=== PATIENT | male | born 1995 | race Hispanic/Latino ===

== ENCOUNTER 2020-09-03 12:52 | Emergency (ER) | payer SELFPAY ==
[2020-09-03] VITALS (18 sets, daily range): BP systolic 147–160; BP diastolic 91–104; PULSE 51–56; RESP 14; TEMP 36.6; O2SAT 96–100
--- NOTE | ~2020-09-03 | XR_ITS ---
EXAMINATION: XR chest 1V portable DATE: 09/03/2020 16:57 INDICATION: Hypertension. Dizziness. Lightheadedness. TECHNIQUE: frontal view of the chest was obtained. COMPARISON: None FINDINGS: The lungs are clear with no focal airspace opacities, pulmonary edema, pleural effusion or pneumothor ax. The cardiomediastinal silhouette is normal. Visualized bones and soft tissues are unremarkable. IMPRESSION: 1. No acute cardiopulmonary disease. Reviewed, dictated and finalized at location A. L FURNITURE REPAIRER
[2020-09-03 15:58] LABS: Basophils Absolute Auto 0.1 K/mm3 (0.0-0.1); Basophils Percent Auto 0.6 % (0.2-1.2); Eosinophils Absolute Auto 0.1 K/mm3 (0-0.3); Eosinophils Percent Auto 0.9 % (0-4.4); Hematocrit 48.2 % (42.0-52.0); Hemoglobin 17.2 g/dL (14.0-18.0); Immature Granulocyte Absolute 0.02 K/mm3 (0.00-0.031); Immature Granulocyte Percent A 0.3 % (0-0.5); Lymphocytes Absolute Auto 1.98 K/mm3 (0.9-3.2); Lymphocytes Percent Auto 25.1 % (18.3-44.2); Mean Corpuscular HGB Conc 35.7 g/dl (32-36); Mean Corpuscular Hemoglobin 30.2 pg (26-34); Mean Corpuscular Volume 84.6 fl (80-100); Mean Platelet Volume 8.7 fl (7.4-10.4); Monocytes Absolute Auto 0.7 K/mm3 (0.1-0.6); Monocytes Percent Auto 8.5 % (2.6-8.5); Neutrophils Absolute Auto 5.1 K/mm3 (1.3-6.7); Neutrophils Percent Auto 64.6 % (45.5-73.1); Platelet Count Result 266 k/mm3 (150-375); Red Cell Distribution Width 11.9 % (11.5-14.5); White Blood Count 7.9 K/mm3 (4.5-10.0)
[2020-09-03 16:13] LABS: Alanine Aminotransferase 85 U/L (4-50); Albumin Level 4.7 g/dL (3.5-5.1); Alkaline Phosphatase 124 U/L (38-126); Anion Gap 8 mmol/L (8-16); Aspartate Amino Transferase 65 U/L (17-59); Blood Urea Nitrogen 13 mg/dL (9-20); Calcium 9.7 mg/dL (8.4-10.2); Carbon Dioxide 28 mmol/L (22-30); Chloride 102 mmol/L (98-107); Estimated CRCL calculation 126 ml/min; Estimated Glomerular Filt Rate > 60; Glucose 91 mg/dL (75-110); Potassium 4.3 mmol/L (3.4-5.0); Sodium 138 mmol/L (137-145)
[2020-09-03 16:25] LABS: Troponin I < 0.012 ng/mL (0.000-0.034)
--- NOTE | 2020-09-03 16:44 | ED.GENADULT ---
HPI - General Adult General Chief complaint: Unspecified Stated complaint: htn Time Seen by Provider: 09/03/20 14:25 Source: patient Mode of arrival: ambulatory Limitations: no limitations History of Present Illness HPI narrative: Patient is a 24-year-old male who presents emergency department for evaluation of hypertension feeling dizzy lightheaded happened last night noticed this today he had taken his blood pressure at home and he had had elevated blood pressure readings patient on arrival to emergency department notes he is feeling better denying any pain or symptoms was concerned with family history of hypertension specifically in his dad patient at this time denies any fever chills URI symptoms or other complaints Related Data Home Medications Medication Instructions Recorded Confirmed No Home Medications 09/03/20 09/03/20 Allergies Allergy/AdvReac Type Severity Reaction Status Date / Time No Known Drug Allergies Allergy Unknown Verified 09/03/20 14:03 [facility] Social History Social History (Updated 09/03/20 @ 17:43 by Ethan Salas PA-C) Smoking status: Never smoker Exam Narrative: Exam Narrative: GENERAL: Well-appearing, well-nourished, and in no acute distress. HEAD: Normocephalic, atraumatic. EYES: PERRLA and EOMI. ENT: Nares clear, no rhinorrhea or epistaxis. Mucous membranes moist. CHEST: Clear to auscultation. No respiratory distress. No wheezes rales or rhonchi HEART: Regular rate and rhythm. No murmur heard. Normal peripheral pulses. ABDOMEN: Soft, nontender, nondistended EXTREMITIES: Normal range of motion. No edema. SKIN: Warm, dry, no rash. NEURO: No focal deficits. Alert and oriented x3. PSYCH: Normal mood and affect. Course Course Emergency Course: Patient in the room no distress has been evaluated pressures have remained elevated around 150/100 patient will be given primary care follow-up with blood pressure medication that will be initiated patient is agreeing with this plan will continue to monitor his blood pressures at home to keep a diary pending primary care follow-up Vital Signs Vital signs: Vital Signs Temperature 97.9 F 09/03/20 13:15 Pulse Rate 51 L 09/03/20 13:15 Respiratory Rate 14 09/03/20 13:15 Blood Pressure 160/104 H 09/03/20 13:15 Pulse Oximetry 99 09/03/20 13:15 Temperature 97.9 F 09/03/20 13:15 Pulse Rate 56 L 09/03/20 14:08 Respiratory Rate 14 09/03/20 13:15 Blood Pressure 159/100 H 09/03/20 17:01 Pulse Oximetry 100 09/03/20 17:02 Medical Decision Making MDM Narrative Medical decision making narrative: Patient presented with concerns for hypertension with dizziness that began over the last day patient with family history of hypertension patient's evaluation does not reveal any high risk changes nor did the imaging or EKG will be given follow-up with primary care patient is aware of recommendations and discussion with primary care Vital Signs Vital Signs: Vital Signs Temperature 97.9 F 09/03/20 13:15 Pulse Rate 51 L 09/03/20 13:15 Respiratory Rate 14 09/03/20 13:15 Blood Pressure 160/104 H 09/03/20 13:15 Pulse Oximetry 99 09/03/20 13:15 Temperature 97.9 F 09/03/20 13:15 Pulse Rate 56 L 09/03/20 14:08 Respiratory Rate 14 09/03/20 13:15 Blood Pressure 159/100 H 09/03/20 17:01 Pulse Oximetry 100 09/03/20 17:02 Lab Data Result diagrams: 09/03/20 15:43 09/03/20 15:43 Labs: Lab Results 09/03/20 09/03/20 Range/Units 15:43 15:43 WBC 7.9 (4.5-10.0) K/mm3 RBC 5.70 (4.6-6.20) M/mm3 Hgb 17.2 (14.0-18.0) g/dL Hct 48.2 (42.0-52.0) % MCV 84.6 (80-100) fl MCH 30.2 (26-34) pg MCHC 35.7 (32-36) g/dl RDW 11.9 (11.5-14.5) % Plt Count 266 (150-375) k/mm3 MPV 8.7 (7.4-10.4) fl Immature Gran % (Auto) 0.3 (0-0.5) % Neut % (Auto) 64.6 (45.5-73.1) % Lymph % (Auto) 25.1 (18.3-44.2) % [place] % (Auto) 8.5 (2.6-8.5) %
--- NOTE | 2020-09-03 16:45 | ECG_ITS ---
Measurements Intervals [place] Rate: 51 P: 22 [place]: 154 QRS: 26 QRSD: 93 T: 31 QT: 387 QTc: 358 Interpretive Statements SINUS BRADYCARDIA BORDERLINE ECG Electronically Signed On 09-03-2020 17:26:49 OPERATION SHIFT SUPERVISOR by Sarabjit Giles D.O.
== END 2020-09-03 18:17 | disposition home or self-care (01) ==
PROVIDERS: Emergency Medicine Emergency Medical Services; Emergency Provider Emergency Medicine; Referring Provider Family Medicine
DX: I10 Essential (primary) hypertension (principal); R00.1 Bradycardia, unspecified
CPT/HCPCS: 36415; 71045; 80053; 84484; 85025; 93005; 99284

== ENCOUNTER 2025-08-06 19:15 | Inpatient (IN) | payer SELFPAY ==
[2025-08-06] VITALS (17 sets, daily range): BP systolic 141–205; BP diastolic 89–128; PULSE 54–99; RESP 15–21; TEMP 36.5; O2SAT 98–100; BMI 33.8
--- NOTE | ~2025-08-06 | CT_ITS ---
EXAMINATION: CTA chest abdomen pelvis DATE: 08/06/2025 20:21 INDICATION: Chest pain. TECHNIQUE: Computed tomographic angiography (CTA) of the chest, abdomen, and pelvis was performed with 100 mL Omnipaque-350 intravenous contrast. Automated exposure control and iterative reconstruction technique were employed. The dose- length product was 1270.54 mGy-cm. Maximum intensity projection 3D- reconstructions of the aorta and other arteries were constructed by the technologist on a separate workstation. COMPARISON: CT abdomen 10/13/2013 FINDINGS: CHEST CTA: The lungs demonstrate mild atelectasis. Again seen is air trapping in basilar left lower lobe. No pleural effusion. Cardiomegaly is noted. No pericardial effusion. There is no pulmonary embolus. The aorta is normal. There is mild chronic anterior wedging of multiple vertebral bodies. There is mild thoracic spondylosis. ABDOMEN AND PELVIS CTA: The liver, gallbladder, spleen, pancreas, adrenal glands, and right kidney are normal. There is severe atrophy of left kidney. There are no dilated loops of bowel. There are changes of appendectomy. There is no significant stenosis of celiac axis, superior mesenteric artery, the renal arteries, or inferior mesenteric artery. There are no pathologically enlarged lymph nodes. There is no free intraperitoneal fluid. There is mild lumbar spondylosis. IMPRESSION: 1. Chronic air trapping in basilar left lung lower lobe. 2. Cardiomegaly. 3. Severe atrophy of left kidney. Reviewed, dictated and finalized at location E. ICAL CLERK
--- NOTE | ~2025-08-06 | XR_ITS ---
Examination: XR chest 1V portable Clinical History: CHEST PAIN Comparison: None Technique: Portable AP Findings: Heart size prominent. Lungs clear. No acute bony abnormality. IMPRESSION: 1. Heart size enlarged. 2. Lungs clear. Reviewed, dictated and finalized at location R. R&D LAB TECHNICIAN
--- NOTE | ~2025-08-06 | MR_ITS ---
EXAM/PROCEDURE: MR brain/brain stem wo/w con HISTORY: slurred speech COMPARISON: None available. TECHNIQUE: Pre and postcontrast enhanced multiplanar brain MRI performed. FINDINGS: No mass, mass effect or hemorrhage. No abnormal enhancing foci postcontrast series. No restricted diffusion or acute ischemia. Mild bifrontal T2 weighted hyperintense white matter foci are present as can be seen on images 16 through 19 of series 5. Milder changes also appear to be present in the parietal and occipital lobes. The largest of these lesions measures approximately 5 mm and is in the right frontal region, image 16 series 5. The brainstem and cerebellum appear normal. Vascular flow voids appear patent. Hippocampal regions are symmetric. Periorbital paranasal calvarial structures appear normal. IMPRESSION: Scattered small subcentimeter T2 weighted hyperintense white matter foci potentially representing demyelinating process. No associated restricted diffusion or abnormal enhancement. Reviewed, dictated and finalized at location A. LOGIST IMPRESSION: Scattered small subcentimeter T2 weighted hyperintense white matter foci potent ially representing demyelinating process. No associated restricted diffusion or abnormal enhancement.
--- NOTE | ~2025-08-06 | CT_ITS ---
CT HEAD NON-CONTRAST Clinical History: CHASE, Hypertensive crisis Comparison: None Technique: Unenhanced axial images skull base to vertex Coronal, sagittal reformats CT images acquired with automatic exposure control for dose reduction DLP: 908 mGy-cm Findings: Sulci, ventricles: Unremarkable. No intracerebral hemorrhage. No evidence acute territorial infarct. No mass effect, midline shift. Bony calvarium intact. Visualized paranasal sinuses: Clear. Mastoid air cells: Clear. IMPRESSION: 1. No acute intracranial findings. Reviewed, dictated and finalized at location R. OR GALLERY OPERATOR
--- NOTE | 2025-08-06 19:16 | ECG_ITS ---
Test Date: 2025-08-06 19:30:18 Measurements Intervals [place] Rate: 61 P: 33 [place]: 140 QRS: 20 QRSD: 117 T: 144 QT: 408 QTc: 413 Interpretive Statements SINUS RHYTHM INTRAVENTRICULAR CONDUCTION DELAY LEFT VENTRICULAR HYPERTROPHY WITH ST-T CHANGE ST-T WAVE ABNORMALITY N INFERIOR LEADS- CONSIDER ISCHEMIA PEAKED T WAVES- CONSIDER HYPERKALEMIA BASELINE ARTIFACT- I, II, III, AVR ABNORMAL ECG No previous ECG available for comparison Electronically Signed On 08-07-2025 06:14:57 ADVERTISING SALES AGENT by Sarabjit Giles D.O.
--- NOTE | 2025-08-06 19:36 | ECG_ITS ---
Test Date: 2025-08-06 20:20:34 Measurements Intervals [place] Rate: 73 P: 40 [place]: 140 QRS: 14 QRSD: 118 T: 153 QT: 432 QTc: 479 Interpretive Statements SINUS RHYTHM WITH SINUS ARRHYTHMIA INTRAVENTRICULAR CONDUCTION DELAY LEFT VENTRICULAR HYPERTROPHY WITH ST-T CHANGE ST-T WAVE ABNORMALITY IN INF/LAT LEADS- CONSIDER ISCHEMIA PEAKED T WAVES- CONSIDER HYPERKALEMIA ABNORMAL ECG Compared to ECG 08/06/2025 19:30:18 HEART RATE HAS INCREASED Electronically Signed On 08-07-2025 06:16:21 SINGLE ENDING MACHINE OPERATOR by Sarabjit Giles D.O.
[2025-08-06] MEDS: ASPIRIN 81 MG CHEWABLE TABLET 324 MG PO (19:42)
--- NOTE | 2025-08-06 19:45 | ECG_ITS ---
Test Date: 2025-08-06 19:45:36 Measurements Intervals [place] Rate: 54 P: 23 [place]: 140 QRS: 19 QRSD: 118 T: 136 QT: 427 QTc: 406 Interpretive Statements SINUS BRADYCARDIA INTRAVENTRICULAR CONDUCTION DELAY LEFT VENTRICULAR HYPERTROPHY WITH ST-T CHANGE ST-T WAVE ABNORMALITY IN INFERIOR LEADS- CONSIDER ISCHEMIA PEAKED T WAVES- CONSIDER HYPERKALEMIA BASELINE ARTIFACT- I, III, AVR, AVL, AVF ABNORMAL ECG Compared to ECG 08/06/2025 19:30:18 HEART RATE HAS DECREASED Electronically Signed On 08-07-2025 09:06:14 ELECTRONIC DEVICE MONITOR by Sarabjit Giles D.O.
[2025-08-06 19:48] LABS: Hematocrit 47.4 % (42.0-52.0); Hemoglobin 17.0 g/dL (14.0-18.0); Immature Granulocyte Percent A 0.5 % (0-0.5); Lymphocytes Absolute Auto 1.36 K/mm3 (0.9-3.2); Mean Corpuscular HGB Conc 35.9 g/dl (32-36); Mean Corpuscular Hemoglobin 30.7 pg (26-34); Mean Corpuscular Volume 85.7 fl (80-100); Nucleated Red Blood Cells Absolute Auto 0.000 K/mm3 (0.0-0.012); Nucleated Red Blood Cells Perc 0.0 % (0.0-0.2); Platelet Count Result 274 k/mm3 (150-375); Red Blood Count 5.53 M/mm3 (4.6-6.20); White Blood Count 12.9 K/mm3 (4.5-10.0)
--- NOTE | 2025-08-06 19:48 | ED_ITS ---
HPI - Chest Pain General Chief Complaint: Chest Pain Stated Complaint: elevated bp, chest heaviness Time Seen by Provider: 08/06/25 19:17 History of Present Illness HPI narrative: 29-year-old male otherwise healthy presenting to the emergency department with chest pain and heaviness for last 3-4 days with a sudden-onset severe headache today several hours ago. He states his pain is radiating up to his jaw localized to his chest and he is having an intense headache. States his blood pressure is elevated. His a history of elevated blood pressure and previously seen in the ER for this but did not follow up with his primary care provider or take any blood pressure medications. Denies any nausea, vomiting. States he was not doing anything exertional strenuous when the headache started. Has not tried any symptom controlling medications. No fever, chills, shortness a breath, limb weakness. His family states that he had some slurring speech with his headache that has resolved quickly and not evident presently. Patient denies any numbness or tingling in his arms or legs or any facial asymmetry or droop. No word-finding difficulties but does appear weak and tired. Related Data Allergies Allergy/AdvReac Type Severity Reaction Status Date / Time No Known Drug Allergies Allergy Unknown Verified 08/06/25 23:25 Review of Systems 2 Review of Systems: as reviewed above in HPI All systems reviewed & are unremarkable except as noted in HPI and below PMFSH Family History Family History (Updated 08/06/25 @ 23:29 by Skylar Brasher RN) Grandparent Hypertension Mother Hypertension Social History Social History Smoking status: Never smoker Second hand tobacco smoke exposure: No Alcohol intake: current Drinks per week: 30 Substance use: current Substance use type: marijuana and crack/cocaine Other substance usage details: cocaine rarely, weed every day Lack of Transportation: No Lack of Food: Never True Current Housing: I Have Housing Concerned About Future Housing: No Difficulty Paying Gas/Electric Bills: No Difficulty Paying for Meds: No Currently Unemployed: No Education: High School Diploma/GED Difficulty w/ Childcare or Family Care: No Spiritual care concerns: No Exam 2 Narrative: GENERAL: ill-appearing, tired and weak in appearance, complaining of a headache and chest pain HEAD: [Normocephalic, atraumatic.] EYES: [PERRLA and EOMI.] ENT: Nares clear, no rhinorrhea or epistaxis. Mucous membranes moist. NECK: Supple. CHEST: [Clear to auscultation. No respiratory distress.] HEART: strong pulses, warm extremities, regular rate and rhythm ABDOMEN: [Soft, nondistended], [nontender], [No rigidity or guarding] EXTREMITIES: Normal range of motion. [No edema.] SKIN: Warm, dry, no rash. NEURO: [No focal deficits]. Alert and oriented [x3.] PSYCH: [Normal mood and affect.] Course Vital Signs Vital signs: Vital Signs Pulse Rate 65 08/06/25 19:21 Respiratory Rate 18 08/06/25 19:21 Blood Pressure 205/128 H 08/06/25 19:21 Pulse Oximetry 100 08/06/25 19:21 Oxygen Delivery Room Air 08/06/25 19:21 Temperature 36.5 C 08/06/25 21:53 Pulse Rate 78 08/06/25 23:47 Respiratory Rate 20 08/06/25 22:40 Blood Pressure 163/113 H 08/06/25 23:47 Pulse Oximetry 100 08/06/25 22:40 Oxygen Delivery Room Air 08/06/25 19:21 MDM MDM Narrative Medical decision making narrative: 29-year-old male otherwise healthy presenting to the emergency department with chest pain and heaviness for last 3-4 days with a sudden-onset severe headache today several hours ago. He states his pain is radiating up to his jaw localized to his chest and he is having an intense headache. States his blood pressure is elevated. His a history of elevated blood pressure and previously seen in the ER for this but did not follow up with his primary care provider or take any blood pressure medications. Denies any nausea, vomiting. States he was not doing anything exertional strenuous when the headache started. Has not tried any symptom controlling medications. No fever, chills, shortness a breath, limb weakness. His family states that he had some slurring speech with his headache that has resolved quickly and not evident presently. Patient denies any numbness or tingling in his arms or legs or any facial asymmetry or droop. No word-finding difficulties but does appear weak and tired. Patient is complaining of chest pain and having elevated blood pressures high at 205/128. History of uncontrolled hypertension. patient is ill-appearing and weak/ lethargic but has no focal neurological deficits. His headache was sudden onset and throbbing /intense. EKG obtained initially shows LVH with higher voltages as well as high T-waves. Appears to have been flex it up were J-point elevations in the anterior leads with some flattening/ depressions in the inferior leads. He has no cardiac risk factors after discussing with him and the family members he does not smoke does not any strong family history of cardiac disease, no congenital history to his knowledge and does not use any illicit substances such as cocaine or methamphetamines, sympathomimetics. Repeat EKG shortly thereafter largely unchanged, compared to prior EKG 3 years ago there are significant T-wave differences and LVH is now present. This could be hypertensive emergency. 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 Potential for renal artery stenosis or renal induced hypertension causing his presentation at a young age. His EKG is abnormal but he has no coronary risk factors will proceed with treating his blood pressure and obtaining other potential rule outs at this time. CT angiography of the chest was ordered and a CT of the head was ordered to rule out intracranial pathology given the severe headache could be subarachnoid or other brain bleed. patient was given Compazine, labetalol, fluids and laboratory studies EKG serially and chest x- ray, the labs were ordered. CT called for emergent imaging at this time. Spoke to Interventional Cardiology Dr. Reynoso and we went over the 3 EKGs we have together. He does have inferior lateral ST depression pattern but no overt ST segment elevations. He did recommend blood pressure control and heparinization at this time if no contraindications but we are still waiting on CT angiography of his chest and CT of the head. I did review the CT angiography and I do not appreciate any large dissection or aneurysm formation but CT head does raise suspicion and awaiting radiology formal read although no overt subarachnoid/subdural / intraventricular bleed evident. Blood pressure initially responded to labetalol down to 160 systolic and then immediately rebounded up to 201/127. chest pain now better with blood pressure control with goal 160 systolic. spoke to the radiologist Dr. Lo regarding patient's head CT specifically around the posterior lateral aspect on the right side and he confirms there is no intracranial hemorrhage in this is his transverse sinuses. Patient has had improvement in his symptoms no longer having any chest pain with his blood pressure controlled in the 140s to 160 systolic range on 3 of Cardene. his remaining laboratory studies show a creatinine 1.14, troponin 3.92, will trend his troponin EKGs. Symptoms improved at this time. CT angiography shows no dissection or aneurysm formation. Chest x-ray appears to have some cardiomegaly and the LVH on his EKG points towards longstanding hypertension has not been controlled causing his presentation. Confirmed with Cardiology for heparinization and patient will be admitted to the ICU for nicardipine drip heparinization and Cardiology and feed in worker consultation. Waiting hospitals discussion at this time. Spoke to the hospitalist Dr. Lawrence who accepted the patient to the ICU at this time. One of the nursing staff raised suspicion for potential drug use as well after discussion with the patient's family. Patient adamantly denied drug use explicitly about cocaine or meth when asked. UDS was ordered and positive for cocaine which does help explain some of his symptomatology in addition to findings on labs/imaging. Dispo unchanged, admitted to ICU with cardene gtt for HTN emergency, cards eval and further monitoring/symtom control. Differential Diagnosis Differential Diagnosis: hypertensive emergency, ACS, aortic dissection, subarachnoid hemorrhage, electrolyte imbalances, renal artery stenosis causing hypertension, drug-induced hypertensive emergency Lab Data MDM Lab Attestation statement: I personally reviewed the patient's lab results. 08/06/25 22:46 08/06/25 19:41 Labs: Lab Results 08/06/25 08/06/25 08/06/25 Range/Units 19:41 21:10 21:10 WBC 12.9 H (4.5-10.0) K/mm3 RBC 5.53 (4.6-6.20) M/mm3 Hgb 17.0 (14.0-18.0) g/dL Hct 47.4 (42.0-52.0) % MCV 85.7 (80-100) fl MCH 30.7 (26-34) pg MCHC 35.9 (32-36) g/dl RDW 12.0 (11.5-14.5) % Plt Count 274 (150-375) k/mm3 MPV 8.8 (7.4-10.4) fl Immature Gran % (Auto) 0.5 (0-0.5) % Neut % (Auto) 82.7 H (45.5-73.1) % Lymph % (Auto) 10.5 L (18.3-44.2) % [place] % (Auto) 5.7 (2.6-8.5) % Eos % (Auto) 0.2 (0-4.4) % Baso % (Auto) 0.4 (0.2-1.2) % Lymph # (Auto) 1.36 (0.9-3.2) K/mm3 [place] # (Auto) 0.7 H (0.1-0.6) K/mm3 Eos # (Auto) 0.0 (0-0.3) K/mm3 Baso # (Auto) 0.1 (0.0-0.1) K/mm3 Abs Immat Gran (auto) 0.06 H (0.00-0.031) K/mm3 Absolute Neuts (auto) 10.7 H (1.3-6.7) K/mm3 Absolute Nucleated RBC 0.000 (0.0-0.012) K/mm3 Nucleated RBC % 0.0 (0.0-0.2) % PT 13.3 (11.1-14.7) Seconds INR 1.0 APTT 27.0 (22.3-36.8) Seconds Sodium 137 (137-145) mmol/L Potassium 4.0 (3.4-5.0) mmol/L Chloride 99 (98-107) mmol/L Carbon Dioxide 30 (22-30) mmol/L Anion Gap 8 (4-12) mmol/L BUN 9 (9-20) mg/dL Creatinine 1.14 (0.7-1.3) mg/dL Estim Creat Clear Calc 93 ml/min Estimated GFR > 60 (59 - ) Glucose 114 H (65-110) mg/dL Calcium 9.9 (8.4-10.2) mg/dL Total Bilirubin 1.2 (0.2-1.3) mg/dL AST 128 H (17-59) U/L ALT 55 H (6-50) U/L Alkaline Phosphatase 114 (38-126) U/L Troponin I 3.920 H* (0.000-0.034) ng/mL Total Protein 8.6 H (6.3-8.2) g/dL Albumin 4.8 (3.5-5.1) g/dL Lipase 348 H (23-300) U/L Ur Butalbital Screen Cancelled U Butalbital Confirm Cancelled Urine Opiates Screen Cancelled Negative Ur Opiates Confirm Cancelled Ur Codeine Screen Cancelled Urine Codeine Confirm Cancelled Ur Morphine Screen Cancelled U 6-Acetylmorphine Conf Cancelled Ur Morphine Confirm Cancelled Urine Methadone Screen Negative (Negative) Ur Barbiturates Screen Cancelled Urine Barbiturates Ur Phencyclidine Scrn (Negative) Ur Amphetamine Screen (Negative) Ur Amphetamines Screen U Amphetam Cnfrm GC/MS U Amphetamines Confirm U Methamphetamines Scrn U Methamphetamin Confrm Ur Amobarbital Screen Ur Amobarbital Confirm U Pentobarbital Scrn U Pentobarbital Conf U Phenobarbital Scrn U Phenobarbital Confirm U Secobarbital Screen U Secobarbital Confirm U Benzodiazepines Scrn (Negative) Urine Cocaine Screen (Negative) U Cocaine Metab Screen U Cocaine Metab Confirm Ur Benzoylecognine Conf U Cannabinoids Screen Urine Cannabinoids Ur Carboxy THC Confirm Adltrnts U Creatinine Adlt U Specific [place] Adulterants Ur Nitrites 08/06/25 08/06/25 08/06/25 Range/Units 21:10 21:10 21:10 WBC (4.5-10.0) K/mm3 RBC (4.6-6.20) M/mm3 Hgb (14.0-18.0) g/dL Hct (42.0-52.0) % MCV (80-100) fl MCH (26-34) pg MCHC (32-36) g/dl RDW (11.5-14.5) % Plt Count (150-375) k/mm3 MPV (7.4-10.4) fl Immature Gran % (Auto) (0-0.5) % Neut % (Auto) (45.5-73.1) % Lymph % (Auto) (18.3-44.2) % [place] % (Auto) (2.6-8.5) % Eos % (Auto) (0-4.4) % Baso % (Auto) (0.2-1.2) % Lymph # (Auto) (0.9-3.2) K/mm3 [place] # (Auto) (0.1-0.6) K/mm3 Eos # (Auto) (0-0.3) K/mm3 Baso # (Auto) (0.0-0.1) K/mm3 Abs Immat Gran (auto) (0.00-0.031) K/mm3 Absolute Neuts (auto) (1.3-6.7) K/mm3 Absolute Nucleated RBC (0.0-0.012) K/mm3 Nucleated RBC % (0.0-0.2) % PT (11.1-14.7) Seconds INR APTT (22.3-36.8) Seconds Sodium (137-145) mmol/L Potassium (3.4-5.0) mmol/L Chloride (98-107) mmol/L Carbon Dioxide (22-30) mmol/L Anion Gap (4-12) mmol/L BUN (9-20) mg/dL Creatinine (0.7-1.3) mg/dL Estim Creat Clear Calc ml/min Estimated GFR (59 - ) Glucose (65-110) mg/dL Calcium (8.4-10.2) mg/dL Total Bilirubin (0.2-1.3) mg/dL AST (17-59) U/L ALT (6-50) U/L Alkaline Phosphatase (38-126) U/L Troponin I (0.000-0.034) ng/mL Total Protein (6.3-8.2) g/dL Albumin (3.5-5.1) g/dL Lipase (23-300) U/L Ur Butalbital Screen U Butalbital Confirm Urine Opiates Screen Ur Opiates Confirm Ur Codeine Screen Urine Codeine Confirm Ur Morphine Screen U 6-Acetylmorphine Conf Ur Morphine Confirm Urine Methadone Screen (Negative) Ur Barbiturates Screen Negative Urine Barbiturates Cancelled Ur Phencyclidine Scrn Negative (Negative) Ur Amphetamine Screen Negative (Negative) Ur Amphetamines Screen Cancelled Cancelled U Amphetam Cnfrm GC/MS Cancelled U Amphetamines Confirm Cancelled U Methamphetamines Scrn Cancelled U Methamphetamin Confrm Cancelled Ur Amobarbital Screen Cancelled Ur Amobarbital Confirm Cancelled U Pentobarbital Scrn Cancelled U Pentobarbital Conf Cancelled U Phenobarbital Scrn Cancelled U Phenobarbital Confirm Cancelled U Secobarbital Screen Cancelled U Secobarbital Confirm Cancelled U Benzodiazepines Scrn Negative (Negative) Urine Cocaine Screen Positive A (Negative) U Cocaine Metab Screen Cancelled U Cocaine Metab Confirm Cancelled Ur Benzoylecognine Conf Cancelled U Cannabinoids Screen Cancelled Positive A Urine Cannabinoids Cancelled Ur Carboxy THC Confirm Cancelled Adltrnts U Creatinine Cancelled Adlt U Specific [place] Cancelled Adulterants Ur Nitrites Cancelled Imaging Data Attestation: I personally reviewed and interpreted this imaging study as follows: My impression: No acute intracranial findings. No dissection or aneurysm. Critical Care Time Critical Care Time Critical Care Time: Yes Time Type: Intermittent Initial evaluation, discuss w/ involved parties, attempting to gather old records: 15 minutes Documenting medical record: 15 minutes Review of results (EKG's, labs, imaging): 15 minutes Serial repeat bedside evaluation: 15 minutes Discussing case with multiple memebers of the care team and consultants: 15 minutes Total Critical Care Time: 75 Discharge Plan Discharge Clinical Impression: Hypertensive emergency, Non-STEMI (non-ST elevated myocardial infarction), Cocaine use, Agenesis of left kidney, Chest pain, Headache Patient Disposition: Still a Patient Condition: Guarded Prognosis
[2025-08-06] MEDS: SODIUM CHLORIDE 0.9% IV 1,000 ML 999 ML IV CONT (19:58)
[2025-08-06] MEDS: PROCHLORPERAZINE EDISYLATE 10 MG/2 ML VIAL IV PUSH (19:58)
[2025-08-06 20:01] LABS: INR 1.0; Prothrombin Time 13.3 Seconds (11.1-14.7)
[2025-08-06 20:03] LABS: Partial Thromboplastin Time 27.0 Seconds (22.3-36.8)
[2025-08-06 20:05] LABS: Alanine Aminotransferase 55 U/L (6-50); Albumin Level 4.8 g/dL (3.5-5.1); Alkaline Phosphatase 114 U/L (38-126); Anion Gap 8 mmol/L (4-12); Aspartate Amino Transferase 128 U/L (17-59); Bilirubin,Total 1.2 mg/dL (0.2-1.3); Blood Urea Nitrogen 9 mg/dL (9-20); Calcium 9.9 mg/dL (8.4-10.2); Carbon Dioxide 30 mmol/L (22-30); Chloride 99 mmol/L (98-107); Estimated CRCL calculation 93 ml/min; Estimated Glomerular Filt Rate > 60; Glucose 114 mg/dL (65-110); Lipase 348 U/L (23-300); Potassium 4.0 mmol/L (3.4-5.0); Sodium 137 mmol/L (137-145); Total Protein 8.6 g/dL (6.3-8.2)
[2025-08-06 20:14] LABS: Troponin I 3.920 ng/mL (0.000-0.034)
--- NOTE | 2025-08-06 21:22 | PM.IMHP2 ---
H&P: HPI History of Present Illness Date/Time: 08/06/25 21:22 Chief Complaint: chest pain Narrative: This is a 29-year-old male presents to the ED with chest pain and heaviness for the past 3-4 days with sudden onset severe headache that started several hours ago. Patient stated his pain is radiating up to his jaw from a chest and having intense headache. His blood pressure has been elevated as well. He does have history of hypertension but does not take any blood pressure medication regularly. No nausea vomiting. No fever chills no shortness of breath no or arm or leg weakness. No facial asymmetry. On ED evaluation he was found to have extremely elevated blood pressure add 205/128. EKG showed left ventricular hypertrophy with some ST depressions in the inferior leads. Laboratory studies showed a WBC of 12.9 hemoglobin 17 platelet count 274. Sodium 137 potassium 4 chloride 99 bicarbonate 30 BUN 9 creatinine 1.1 blood glucose 114. LFTs with total bilirubin of 1.2 AST 128 ALT 55 alkaline phosphatase 114. Lipase was elevated at 348. Troponin came back elevated at 3.92. CT head showed no acute intracranial findings. CT angiogram of the chest showed no PE or dissection. Cardiology was consulted for EKG changes and elevated troponin. Due to elevated blood pressure recommendation was to control blood pressure and start heparin. A received IV labetalol in the ER however subsequently was placed on nicardipine drip.. Chest x-ray showed some cardiomegaly with no acute findings. Patient is admitted to the ICU for further treatment. Since lowering blood pressure he has been feeling better with no further chest pain or headache. Review of Systems Review of Systems: - CONSTITUTIONAL: Denies weight loss, fever and chills. - HEENT: Denies changes in vision and hearing - RESPIRATORY: Denies SOB and cough. - CV: Denies palpitations and reports CP. - GI: Denies abdominal pain, nausea, vomiting and diarrhea. - : Denies dysuria and urinary frequency. - MSK: Denies myalgia and joint pain. - SKIN: Denies rash and pruritus. - NEUROLOGICAL: Reports headache and denies syncope. - PSYCHIATRIC: Denies recent changes in mood. Denies anxiety and depression. [facility] Family History Family History (Updated 08/06/25 @ 23:29 by Skylar Brasher RN) Grandparent Hypertension Mother Hypertension Social History Social History Smoking status: Never smoker Meds Home Medications and Allergies Home Medications ?Medication ?Instructions ?Recorded ?Confirmed ?Type lisinopril 5 mg tablet 5 mg PO DAILY #14 tabs 09/03/20 08/06/25 Rx Allergies Allergy/AdvReac Type Severity Reaction Status Date / Time No Known Drug Allergies Allergy Unknown Verified 08/06/25 23:25 Vital Signs Vital Signs - 24 hr 08/06/25 19:21 08/06/25 19:21 08/06/25 19:49 Pulse Rate 65 54 L Respiratory Rate 18 20 Blood Pressure 205/128 H 157/112 H Pulse Oximetry 100 98 Oxygen Delivery Room Air Room Air 08/06/25 19:52 08/06/25 20:23 08/06/25 20:28 Pulse Rate 54 L 61 62 Respiratory Rate 21 H 17 Blood Pressure 158/117 H 201/127 H 201/127 H Pulse Oximetry 99 Oxygen Delivery 08/06/25 20:40 08/06/25 20:49 08/06/25 20:56 Pulse Rate 96 90 89 Respiratory Rate 15 20 20 Blood Pressure 169/114 H 149/104 H 148/102 H Pulse Oximetry 100 99 100 Oxygen Delivery 08/06/25 21:04 08/06/25 21:11 Pulse Rate 95 97 Respiratory Rate 15 Blood Pressure 141/111 H 157/109 H Pulse Oximetry 100 Oxygen Delivery Exam Narrative: GENERAL: Well-appearing not in acute distress HEAD: Normocephalic, atraumatic. EYES: [PERRLA and EOMI.] ENT: Nares clear, no rhinorrhea or epistaxis. Mucous membranes moist. NECK: Supple. CHEST: Clear to auscultation. No respiratory distress. HEART: Regular rate and rhythm ABDOMEN: Soft, nondistended, nontender, No rigidity or guarding EXTREMITIES: Normal range of motion. No edema. SKIN: Warm, dry, no rash. NEURO: No focal deficits. Alert and oriented x3. PSYCH: Normal mood and affect. Results Labs Labs: Short CBC 08/06/25 Range/Units 19:41 WBC 12.9 H (4.5-10.0) K/mm3 Hgb 17.0 (14.0-18.0) g/dL Hct 47.4 (42.0-52.0) % Plt Count 274 (150-375) k/mm3 BMP 08/06/25 19:41 Sodium 137 Potassium 4.0 Chloride 99 Carbon Dioxide 30 BUN 9 Creatinine 1.14 Glucose 114 H Calcium 9.9 Cardiac Enzymes 08/06/25 Range/Units 19:41 Troponin I 3.920 H* (0.000-0.034) ng/mL Liver Function 08/06/25 Range/Units 19:41 Total Bilirubin 1.2 (0.2-1.3) mg/dL AST 128 H (17-59) U/L ALT 55 H (6-50) U/L Alkaline Phosphatase 114 (38-126) U/L Albumin 4.8 (3.5-5.1) g/dL Assessment and Plan Assessment and plan (1) Hypertensive emergency: Code(s): I16.1 - Hypertensive emergency Status: Acute (2) Non-STEMI (non-ST elevated myocardial infarction): Code(s): I21.4 - Non-ST elevation (NSTEMI) myocardial infarction Status: Acute (3) Cocaine use: Code(s): F14.90 - Cocaine use, unspecified, uncomplicated Status: Acute (4) Cannabis abuse: Code(s): F12.10 - Cannabis abuse, uncomplicated Status: Acute (5) Agenesis of left kidney: Code(s): Q60.0 - Renal agenesis, unilateral Status: Acute Plan This is a 29-year-old male presents to the ED with chest pain and heaviness for the past 3-4 days with sudden onset severe headache that started several hours ago. Patient stated his pain is radiating up to his jaw from a chest and having intense headache. His blood pressure has been elevated as well. He does have history of hypertension but does not take any blood pressure medication regularly. No nausea vomiting. No fever chills no shortness of breath no or arm or leg weakness. No facial asymmetry. On ED evaluation he was found to have extremely elevated blood pressure add 205/128. EKG showed left ventricular hypertrophy with some ST depressions in the inferior leads. Laboratory studies showed a WBC of 12.9 hemoglobin 17 platelet count 274. Sodium 137 potassium 4 chloride 99 bicarbonate 30 BUN 9 creatinine 1.1 blood glucose 114. LFTs with total bilirubin of 1.2 AST 128 ALT 55 alkaline phosphatase 114. Lipase was elevated at 348. Troponin came back elevated at 3.92. CT head showed no acute intracranial findings. CT angiogram of the chest showed no PE or dissection. Cardiology was consulted for EKG changes and elevated troponin. Due to elevated blood pressure recommendation was to control blood pressure and took heparinized. A received IV labetalol in the ER however subsequently was placed on nicardipine drip.. Chest x-ray showed some cardiomegaly with no acute findings formal report pending. Patient is admitted to the ICU for further treatment. Since control of blood pressure is symptoms as significantly improved. Hypertensive emergency with elevated blood pressure 205/128 on presentation with non-STEMI started on nicardipine drip Non-STEMI with elevated troponin and ST changes in the EKG could be related to hypertensive emergency. Heparin drip started cardiology has been consulted from the ER. Get echocardiogram Hypertension uncontrolled and untreated prior to admission. Evaluate for secondary causes of hypertension. Headache CT head is negative for any intracranial findings. Likely due to hypertension. Continue to monitor Elevated liver enzymes CT with hepatomegaly and hepatic steatosis. Check hepatitis profile Urine screen positive for cocaine and cannabinoids. History of Cocaine abuse. Admits to using cocaine in the past last use a month ago. 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
[2025-08-06] MEDS: HEPARIN SOD/D5W 100 UNITS/ML 25,000 UNITS/250 ML BAG 9 UNITS IV CONT (21:45)
[2025-08-06 21:51] LABS: Cannabinoid Screen Urine Positive (Negative)
--- NOTE | 2025-08-06 22:18 | ECG_ITS ---
Test Date: 2025-08-06 22:24:45 Measurements Intervals [place] Rate: 78 P: 40 AL: 152 QRS: 16 QRSD: 121 T: 146 QT: 398 QTc: 455 Interpretive Statements SINUS RHYTHM INTRAVENTRICULAR CONDUCTION DELAY LEFT VENTRICULAR HYPERTROPHY WTH ST-T CHANGE ST-T WAVE ABNORMALITY IN ANTEROLAT/INF LEADS- CONSIDER ISCHEMIA PEAKED T WAVES- CONSIDER HYPERKALEMIA ABNORMAL ECG Compared to ECG 08/06/2025 20:20:34 NO SIGNIFICANT CHANGE Electronically Signed On 08-07-2025 06:19:16 TALENT DIRECTOR by Sarabjit Giles D.O.
[2025-08-06 22:55] LABS: Hematocrit 48.1 % (42.0-52.0); Hemoglobin 16.9 g/dL (14.0-18.0); Immature Granulocyte Percent A 0.4 % (0-0.5); Lymphocytes Absolute Auto 1.05 K/mm3 (0.9-3.2); Mean Corpuscular HGB Conc 35.1 g/dl (32-36); Mean Corpuscular Hemoglobin 30.1 pg (26-34); Mean Corpuscular Volume 85.6 fl (80-100); Nucleated Red Blood Cells Absolute Auto 0.000 K/mm3 (0.0-0.012); Nucleated Red Blood Cells Perc 0.0 % (0.0-0.2); Platelet Count Result 243 k/mm3 (150-375); Red Blood Count 5.62 M/mm3 (4.6-6.20); White Blood Count 15.7 K/mm3 (4.5-10.0)
[2025-08-06 23:01] LABS: MRSA (PCR) NOT DETECTED (NOT DETECTE)
[2025-08-06 23:06] LABS: INR 1.1; Prothrombin Time 14.1 Seconds (11.1-14.7)
[2025-08-06 23:08] LABS: Partial Thromboplastin Time 81.4 Seconds (22.3-36.8)
--- NOTE | 2025-08-06 23:19 | ADMGEN ---
This patient, Kei Keller, was admitted to Intensive Care Unit-1. Patient/family oriented to hospital policies and general routines including ID bracelet, bed and alarms, visiting hours, pain management, procedures, bathroom and other care routines, personal items, smoking policy, room service/diet, and visiting hours. Information on how to activate the Rapid Response Team has been discussed. Patient/Family are encouraged to report perceived risks to care and to ask questions if they do not understand what they are told or what they should do.
[2025-08-06 23:35] LABS: Troponin I 6.400 ng/mL (0.000-0.034)
--- NOTE | 2025-08-06 23:37 | ECG_ITS ---
Test Date: 2025-08-06 23:43:22 Measurements Intervals [place] Rate: 101 P: 40 UT: 153 QRS: 2 QRSD: 118 T: 139 QT: 370 QTc: 481 Interpretive Statements SINUS TACHYCARDIA INTRAVENTRICULAR CONDUCTION DELAY EARLY PRECORDIAL R/S TRANSITION LEFT VENTRICULAR HYPERTROPHY WITH ST-T CHAGE ST-T WAVE ABNORMALITY IN INFERIOR LEADS- CONSIDER ISCHEMIA PEAKED T WAVES- CONSIDER HYPERKALEMIA ABNORMAL ECG Compared to ECG 08/06/2025 22:24:45 HEART RATE HAS INCREASED Electronically Signed On 08-07-2025 06:12:33 ROLL FINISHER by Sarabjit Giles D.O.
[2025-08-07] VITALS (33 sets, daily range): BP systolic 128–169; BP diastolic 73–117; PULSE 72–127; RESP 16–30; TEMP 36.2–37.2; O2SAT 94–100
--- NOTE | 2025-08-07 | ECHO_ITS ---
Patient Info Name: Kei Keller Age: 29 years : 1995 Gender: Male Ht: 65 in Wt: 203 lbs BSA: 2.09 m2 HR: 112 bpm BP: 139 / 79 mmHg Technical Quality: Good Exam Date: 08/07/2025 8:16 AM Patient Status: I Admit Date: 08/07/2025 Exam Type: CA echo dop color flow w con Complete two-dimensional, color flow and Doppler transthoracic echocardiogram is performed with contrast to opacify the left ventricle and to improve the deliniation of the left ventricle endocardial borders. Staff Referring Physician: Leonides Mccain MD Simulation Tech: Halle Teran Attending Provider: Glenn Moreno Contrast/Agitated Saline Contrast/Ag. Saline: Definity Amount: 2.00 ml Existing IV Access: Yes Summary 1. There is normal biventricular size and systolic function; however cannot rule out inferior wall motion artifact. 2. There are no significant valvular abnormalities. Left Ventricle The left ventricle is normal in size and systolic function. There is mild concentric left ventricular hypertrophy. The left ventricular ejection fraction is visually estimated to be 60-65%. Right Ventricle The right ventricle is normal in size and systolic function. Left Atria The left atrium is normal size. Right Atria The right atrium is normal size. Atrial Septum The atrial septum is not well visualized. Aortic Valve There is no aortic stenosis. There is no aortic regurgitation. Pulmonic Valve The pulmonic valve is not well visualized. Mitral Valve The mitral valve is normal. There is no mitral regurgitation. Tricuspid Valve The tricuspid valve is grossly normal. Pericardium/Pleural Pericardium is normal in appearance with no evidence for significant pericardial effusion. Inferior Vena Cava Normal inferior vena cava with >50% collapse upon inspiration consistent with normal right atrial pressure, 3 mmHg. Aorta The visualized portions of the ascending aorta measures 3.4 cm diameter. Left Ventricular Outflow Tract Name Value Normal LVOT 2D LVOT Diameter 2.1 cm LVOT Doppler LVOT Peak Velocity 104 cm/s LVOT Peak Gradient 4 mmHg LVOT Mean Gradient 2 mmHg LVOT VTI 14 cm LVOT VTI/AV VTI Ratio 0.7 LVOT Stroke Volume 46 ml LVOT CO 5.5 l/min LVOT CI 2.6 l/min/m2 Pulmonic Valve Name Value Normal PV Doppler PV Peak Velocity 140 cm/s PV Peak Gradient 8 mmHg Mitral Valve Name Value Normal MV Doppler MV Peak Gradient 3 mmHg MV Mean Gradient 2 mmHg MV Area (Cont Eq VTI) 2.4 cm2 MV Diastolic Function MV E Peak Velocity 78 cm/s MV A Peak Velocity 62 cm/s MV E/A 1.3 MV Decel Time (PW) 168 ms MV Annular TDI MV E/e' (Septal) 10.7 MV E/e' (Lateral) 12.7 MV E/e' (Average) 11.7 Tricuspid Valve Name Value Normal TV Regurgitation Doppler TR Peak Velocity 188 cm/s TR Peak Gradient 14 mmHg Estimated PAP/RSVP RA Pressure 3 mmHg <=5 PA Systolic Pressure 17 mmHg <36 RV Systolic Pressure 17 mmHg <36 TV Annular TDI TV Lateral Cordelia s' Velocity 17.0 cm/s >=9.5 Aortic Valve Name Value Normal AV Doppler AV Peak Velocity 160 cm/s AV Peak Gradient 10 mmHg AV Mean Gradient 6 mmHg AV VTI 21 cm AV Area (Cont Eq VTI) 2.2 cm2 >=3.0 AV Area (Cont Eq Floyd) 2.1 cm2 AV DI (Floyd) 0.65 AV Regurgitation 2D LVOT Area 3.3 cm2 Ventricles Name Value Normal LV Dimensions 2D/MM IVS Diastolic Thickness (2D) 1.3 cm 0.6-1.0 LVID Diastole (2D) 4.8 cm 4.2-5.8 LVIW Diastolic Thickness (2D) 1.3 cm 0.6-1.0 LVID Systole (2D) 3.5 cm 2.5-4.0 LVOT Diameter 2.1 cm LV Mass (2D Cubed) 243.03 g 88.00-224.00 LV Mass Index (2D Cubed) 116 g/m2 49-115 Relative Wall Thickness (2D) 0.54 <=0.42 LV Fractional Shortening/Ejection Fraction 2D/MM LV Fractional Shortening (2D) 27 % 25-43 LV EF (2D Teichholz) 53 % LV Diastolic Volume (4C MOD) 137 ml LV EF (4C MOD) 26 % LV Diastolic Volume (2C MOD) 115 ml LV EF (2C MOD) 37 % LV Diastolic Volume (BP MOD) 128 ml 62-150 LV Diastolic Volume Index (BP MOD) 61 ml/m2 34-74 LV Systolic Volume (BP MOD) 90 ml 21-61 LV Systolic Volume Index (BP MOD) 43 ml/m2 11-31 LV EF (BP MOD) 30 % 52-72 LV Diastolic Length (4C) 9.1 cm LV Systolic Length (4C) 9.0 cm LV Stroke Volume (4C MOD) 36 ml Atria Name Value Normal LA Dimensions LA Volume (4C A-L) 38 ml LA Volume (BP A-L) 41 ml RA Dimensions RA Systolic Major [place] Length (4C) 4.1 cm 2.1-2.7 RA Area (4C) 9.8 cm2 <=18.0 Report Signatures Amended by Marquis Jorge on 08/07/2025 04:25 PM
--- NOTE | 2025-08-07 02:00 | ECG_ITS ---
Test Date: 2025-08-07 02:37:48 Measurements Intervals [place] Rate: 110 P: 28 [place]: 112 QRS: 4 QRSD: 109 T: 134 QT: 349 QTc: 474 Interpretive Statements SINUS TACHYCARDIA POSSIBLE LEFT ATRIAL ENLARGEMENT LEFT VENTRICULAR HYPERTROPHY WITH ST-T CHANGE ST-T WAVE ABNORMALITY IN ANTEROLAT/INF LEADS- CONSIDER ISCHEMIA PEAKED T WAVES- CONSIDER HYPERKALEMIA ABNORMAL ECG Compared to ECG 08/06/2025 23:43:22 NO SIGNIFICANT CHANGE Electronically Signed On 08-07-2025 19:52:13 CAMP BOSS by Sarabjit Giles D.O.
[2025-08-07 04:45] LABS: Troponin I 9.130 ng/mL (0.000-0.034)
[2025-08-07 04:53] LABS: Thyroid Stimulating Hormone Reflex 0.646 uIU/mL (0.465-4.68)
[2025-08-07 05:42] LABS: Hematocrit 52.0 % (42.0-52.0); Hemoglobin 18.1 g/dL (14.0-18.0); Immature Granulocyte Percent A 0.5 % (0-0.5); Lymphocytes Absolute Auto 1.23 K/mm3 (0.9-3.2); Mean Corpuscular HGB Conc 34.8 g/dl (32-36); Mean Corpuscular Hemoglobin 30.4 pg (26-34); Mean Corpuscular Volume 87.2 fl (80-100); Nucleated Red Blood Cells Absolute Auto 0.000 K/mm3 (0.0-0.012); Nucleated Red Blood Cells Perc 0.0 % (0.0-0.2); Platelet Count Result 276 k/mm3 (150-375); Red Blood Count 5.96 M/mm3 (4.6-6.20); White Blood Count 14.7 K/mm3 (4.5-10.0)
[2025-08-07 06:13] LABS: Partial Thromboplastin Time 32.6 Seconds (22.3-36.8)
[2025-08-07 07:04] LABS: HAV RESULT Negative (Negative); Hepatitis B Core IgM Result Negative (Negative); Hepatitis B Surface Antigen Negative (Negative)
[2025-08-07] MEDS: ASPIRIN 81 MG ENTERIC TABLET PO (09:48)
[2025-08-07] MEDS: PERFLUTREN LIPID MICROSPHERES 1.5 ML VIAL DILUTED TO 10 ML TOTAL VOLUME IV PUSH (10:34)
--- NOTE | 2025-08-07 10:34 | IVDEFINITY ---
Prior to administration of IV Definity the patient was educated on the risks and benefits of the imaging enhancing agent including potential adverse side effects. The patient verbalized understanding. Allergies were verified. No exclusion criteria were identified and at least one of the following inclusion criteria were met: 1) physician request, 2) patient technically difficult to image (per the [place] [employer] Echocardi[employer] guidelines of two or more segments not discernable within the apical view), or 3) questionable left ventricular function. ?
--- NOTE | 2025-08-07 10:52 | P.CONIN_ITS ---
Assessment and Plan Assessment and plan (1) Slurred speech: Code(s): R47.81 - Slurred speech Status: Acute Assessment and Plan: patient a states he had episode of slurred speech. This could be TIA versus hypertensive encephalopathy head CT was negative check MRI to rule out any small CVA (2) Hypertensive emergency: Code(s): I16.1 - Hypertensive emergency Status: Acute Assessment and Plan: uncontrolled hypertension secondary to noncompliance. Patient on nicardipine infusion start p.o. lisinopril and p.o. Coreg wean off nicardipine and transition to p.r.n. labetalol and hydralazine if needed with goal blood pressure below 160 systolic check renal artery Doppler evaluate for renal vascular hypertension consult nephrology other workup ordered for catecholamines (3) Non-STEMI (non-ST elevated myocardial infarction): Code(s): I21.4 - Non-ST elevation (NSTEMI) myocardial infarction Status: Acute Assessment and Plan: patient denied cocaine use but his urine drug screen was positive for cocaine cardiology consulted patient on heparin infusion check echocardiogram patient now chest pain-free non selective beta-ryne aspirin (4) Atrophy of left kidney: Code(s): N26.1 - Atrophy of kidney (terminal) Status: Acute Assessment and Plan: patient's father is states that patient was born with swollen left kidney and patient states that in during his childhood he was told by physician that his left kidney was small. CT scan confirms it ultrasound ordered to evaluate for any renal artery abnormality creatinine electrolytes are normal Plan DVT prophylaxis - on heparin infusion Stress ulcer prophylaxis - Nutrition - heart healthy Code Status - Full Code Total Critical Care Time - 30 minutes Due to a high probability of clinically significant, life threatening deterioration, the patient required my highest level of preparedness to intervene emergently and I personally spent this critical care time directly and personally managing the patient. This critical care time included obtaining a history; examining the patient; pulse oximetry; ordering and review of studies; arranging urgent treatment with development of a management plan; evaluation of patient's response to treatment; frequent reassessment; and discussions with other providers. It was exclusive of separately billable procedures and treating other patients and teaching time. Please see Assessment and Plan section and the rest of the note for further information on patient assessment and treatment [employer] Consult Note Consult date: 08/07/25 Reason for consult: NSTEMI, uncontrolled hypertension HPI: Kei Keller is a 29 year old male with past clear hypertension who is noncompliant with his medication presented to ER with chief complaint of chest pain. Patient appears to have a solitary working kidney which he was told at a young age and was diagnosed with hypertension few years ago and was prescribed lisinopril. Patient has not been taking any medications. He presented with chief complaint of pain in his jaw and chest that started 2 days ago. Patient also states that his arms were tingly. Pain was 7 to 8/10 severe sharp in middle of the chest and radiated to his jaw. he also had headache He denies any shortness of breath dizziness loss of consciousness shortness of breath fever cough. He did mention episode where he speech was slurred which resolved by itself. workup in the ER showed negative head CT and CT angiogram chest abdomen pelvis confirms severe atrophy of the left kidney and cardiomegaly In ER patient was found to be hypotensive with elevated troponin. He was started on nicardipine infusion for blood pressure control and also started on heparin infusion for his NSTEMI Review of Systems 2 Review of Systems: All systems reviewed & are unremarkable except as noted in HPI and below ( HPI) [facility] Past Medical History Medical History (Updated 08/07/25 @ 11:02 by Leonides Mccain MD) Atrophy of left kidney Essential hypertension Family History Family History (Updated 08/06/25 @ 23:29 by Skylar Brasher RN) Grandparent Hypertension Mother Hypertension Social History Social History Smoking status: Never smoker Second hand tobacco smoke exposure: No Alcohol intake: current Drinks per week: 30 Substance use: current Substance use type: marijuana and crack/cocaine Other substance usage details: cocaine rarely, weed every day Lack of Transportation: No Lack of Food: Never True Current Housing: I Have Housing Concerned About Future Housing: No Difficulty Paying Gas/Electric Bills: No Difficulty Paying for Meds: No Currently Unemployed: No Education: High School Diploma/GED Difficulty w/ Childcare or Family Care: No Spiritual care concerns: No Meds Home Medications and Allergies Home Medications ?Medication ?Instructions ?Recorded ?Confirmed ?Type lisinopril 5 mg tablet 5 mg PO DAILY #14 tabs 09/0308/06/25 Rx Allergies Allergy/AdvReac Type Severity Reaction Status Date / Time No Known Drug Allergies Allergy Unknown Verified 08/06/25 23:25 Vital Signs Vital Signs - 24 hr 08/06/25 19:21 08/06/25 19:21 08/06/25 19:49 Temperature Pulse Rate 65 54 L Respiratory Rate 18 20 Blood Pressure 205/128 H 157/112 H Pulse Oximetry 100 98 Oxygen Delivery Room Air Room Air 08/06/25 19:52 08/06/25 20:23 08/06/25 20:28 Temperature Pulse Rate 54 L 61 62 Respiratory Rate 21 H 17 Blood Pressure 158/117 H 201/127 H 201/127 H Pulse Oximetry 99 Oxygen Delivery 08/06/25 20:40 08/06/25 20:49 08/06/25 20:56 Temperature Pulse Rate 96 90 89 Respiratory Rate 15 20 20 Blood Pressure 169/114 H 149/104 H 148/102 H Pulse Oximetry 100 99 100 Oxygen Delivery 08/06/25 21:04 08/06/25 21:11 08/06/25 21:34 Temperature Pulse Rate 95 97 77 Respiratory Rate 15 20 Blood Pressure 141/111 H 157/109 H 150/109 H Pulse Oximetry 100 100 Oxygen Delivery 08/06/25 21:53 08/06/25 22:00 08/06/25 22:16 Temperature 36.5 C Pulse Rate 70 87 87 Respiratory Rate 20 20 Blood Pressure 170/105 H 170/105 H 180/114 H Pulse Oximetry 100 100 Oxygen Delivery 08/06/25 22:40 08/06/25 22:41 08/06/25 23:47 Temperature Pulse Rate 84 99 78 Respiratory Rate 20 Blood Pressure 151/89 H 151/89 H 163/113 H Pulse Oximetry 100 Oxygen Delivery 08/07/25 00:00 08/07/25 00:00 08/07/25 00:00 Temperature 36.9 C Pulse Rate 91 79 Respiratory Rate 18 Blood Pressure 145/91 H Pulse Oximetry 99 Oxygen Delivery Room Air 08/07/25 00:00 08/07/25 01:30 08/07/25 01:30 Temperature Pulse Rate 78 104 H 104 H Respiratory Rate Blood Pressure 145/91 H 169/112 H 169/112 H Pulse Oximetry Oxygen Delivery 08/07/25 02:00 08/07/25 02:00 08/07/25 02:00 Temperature 37.1 C Pulse Rate 102 H 102 H 102 H Respiratory Rate 20 Blood Pressure 158/114 H 158/114 H Pulse Oximetry 99 Oxygen Delivery 08/07/25 03:00 08/07/25 04:00 08/07/25 04:00 Temperature 37.2 C Pulse Rate 116 H 98 89 Respiratory Rate 22 H 23 H Blood Pressure 151/105 H 151/110 H 151/110 H Pulse Oximetry 99 98 Oxygen Delivery 08/07/25 04:00 08/07/25 04:00 08/07/25 04:55 Temperature Pulse Rate 98 100 Respiratory Rate Blood Pressure 157/96 H Pulse Oximetry Oxygen Delivery Room Air 08/07/25 05:00 08/07/25 05:11 08/07/25 05:25 Temperature Pulse Rate 112 H 100 100 Respiratory Rate 22 H Blood Pressure 165/106 H 157/96 H 165/106 H Pulse Oximetry 99 Oxygen Delivery 08/07/25 06:00 08/07/25 06:00 08/07/25 06:00 Temperature 37.0 C Pulse Rate 112 H 96 96 Respiratory Rate 22 H Blood Pressure 139/79 142/95 H Pulse Oximetry 98 Oxygen Delivery 08/07/25 07:00 08/07/25 07:41 08/07/25 07:41 Temperature Pulse Rate 93 101 H 101 H Respiratory Rate 23 H Blood Pressure 130/84 132/73 132/73 Pulse Oximetry 98 Oxygen Delivery 08/07/25 07:52 08/07/25 08:00 08/07/25 08:00 Temperature 36.7 C Pulse Rate 124 H 121 H 114 H Respiratory Rate 30 H Blood Pressure 128/81 129/87 129/87 Pulse Oximetry 98 Oxygen Delivery 08/07/25 09:00 08/07/25 09:00 08/07/25 09:02 Temperature Pulse Rate 101 H 98 104 H Respiratory Rate 21 H Blood Pressure 144/97 H 135/92 H Pulse Oximetry 98 Oxygen Delivery 08/07/25 09:15 08/07/25 09:26 08/07/25 09:42 Temperature Pulse Rate 108 H 127 H Respiratory Rate Blood Pressure 146/95 H 148/106 H Pulse Oximetry Oxygen Delivery Room Air 08/07/25 09:48 08/07/25 10:00 08/07/25 10:00 Temperature 36.6 C Pulse Rate 104 H 86 81 Respiratory Rate 27 H Blood Pressure 151/74 H Pulse Oximetry 98 Oxygen Delivery 08/07/25 10:00 08/07/25 10:02 Temperature Pulse Rate 76 Respiratory Rate Blood Pressure 154/110 H Pulse Oximetry Oxygen Delivery Exam 2 Narrative: General: Pt is alert awake and in NAD Lungs/Chest: Trachea central Clear BS B/L, No crackles or wheezing. Cardiac: RRR. Normal S1 S2. No murmurs Circulation: Pedal pulses are intact and symmetrical. Abdomen: Normal bowel sounds. obese. Soft. NT. ND. Extremities: No clubbing, cyanosis or edema. Warm : Mota in place Neurologic: Follows commands. Moves all 4 extremities PERRL AO x3, no focal neurological deficit apparent, no facial asymmetry, muscle strength symmetric in all 4 extremities, cranial nerves 2-12 intact Skin: normal speech and affect Results Labs 08/07/25 04:38 08/06/25 19:41 Labs: Short CBC 08/06/25 08/06/25 08/07/25 Range/Units 19:41 22:46 04:38 WBC 12.9 H 15.7 H 14.7 H (4.5-10.0) K/mm3 Hgb 17.0 16.9 18.1 H (14.0-18.0) g/dL Hct 47.4 48.1 52.0 (42.0-52.0) % Plt Count 274 243 276 (150-375) k/mm3 BMP 08/06/25 19:41 Sodium 137 Potassium 4.0 Chloride 99 Carbon Dioxide 30 BUN 9 Creatinine 1.14 Glucose 114 H Calcium 9.9 Cardiac Enzymes 08/06/25 08/06/25 08/07/25 Range/Units 19:41 22:46 01:19 Troponin I 3.920 H* 6.400 H* D 9.130 H* D (0.000-0.034) ng/mL Liver Function 08/06/25 Range/Units 19:41 Total Bilirubin 1.2 (0.2-1.3) mg/dL AST 128 H (17-59) U/L ALT 55 H (6-50) U/L Alkaline Phosphatase 114 (38-126) U/L Albumin 4.8 (3.5-5.1) g/dL Quality VTE Prophylaxis VTE prophylaxis: pharmacologic ordered Hospitalist [facility] Advance Care Plan I have confirmed that the patient's Advanced Care Plan is present, code status is documented, or surrogate decision maker is listed in patient medical record.: Yes Medication Reconciliation I have utilized all available resources to obtain, update and review the patients current medications (includes all prescriptions, OTC, herbals, cannabis, and nutritional supplements).: Yes
--- NOTE | 2025-08-07 11:01 | PM.CNNEP ---
Assessment and Plan Assessment and plan (1) Hypertensive emergency: Code(s): I16.1 - Hypertensive emergency Status: Acute (2) Non-STEMI (non-ST elevated myocardial infarction): Code(s): I21.4 - Non-ST elevation (NSTEMI) myocardial infarction Status: Acute (3) Atrophy of left kidney: Code(s): N26.1 - Atrophy of kidney (terminal) Status: Acute History of Present Illness Reason for Consult Consult date: 08/07/25 Reason for consult: accelerated hypertension Chief Complaint Chief complaint: Hypertensive emergency, NSTEMI History of Present Illness Narrative: 29 year old male with past clear hypertension who is noncompliant with his medication presented to ER with chief complaint of chest pain. Patient appears to have a solitary working kidney which he was told at a young age and was diagnosed with hypertension few years ago and was prescribed lisinopril. Patient has not been taking any medications. He presented with chief complaint of pain in his jaw and chest that started 2 days ago. Patient also states that his arms were tingly. Pain was 7 to 8/10 severe sharp in middle of the chest and radiated to his jaw. he also had headache He denies any shortness of breath dizziness loss of consciousness shortness of breath fever cough. He did mention episode where he speech was slurred which resolved by itself. workup in the ER showed negative head CT and CT angiogram chest abdomen pelvis confirms severe atrophy of the left kidney and cardiomegaly In ER patient was found to be hypotensive with elevated troponin. He was started on nicardipine infusion for blood pressure control and also started on heparin infusion for his NSTEMI Since his admission, he has been weaned off the nicardipine drip with relative stability is blood pressure as was started on oral medications. cardiology has been consulted with regard to his apparent elevated troponins/NSTEMI. Review of Systems Review of Systems: As per HPI. [facility] Past Medical History Medical History (Updated 08/07/25 @ 11:02 by Leonides Mccain MD) Atrophy of left kidney Essential hypertension Family History Family History (Updated 08/06/25 @ 23:29 by Skylar Brasher RN) Grandparent Hypertension Mother Hypertension Social History Social History Smoking status: Never smoker Second hand tobacco smoke exposure: No Alcohol intake: current Drinks per week: 30 Substance use: current Substance use type: marijuana and crack/cocaine Other substance usage details: cocaine rarely, weed every day Lack of Transportation: No Lack of Food: Never True Current Housing: I Have Housing Concerned About Future Housing: No Difficulty Paying Gas/Electric Bills: No Difficulty Paying for Meds: No Currently Unemployed: No Education: High School Diploma/GED Difficulty w/ Childcare or Family Care: No Spiritual care concerns: No Meds Home Medications and Allergies Home Medications ?Medication ?Instructions ?Recorded ?Confirmed ?Type lisinopril 5 mg tablet 5 mg PO DAILY #14 tabs 09/03/20 08/06/25 Rx Allergies Allergy/AdvReac Type Severity Reaction Status Date / Time No Known Drug Allergies Allergy Unknown Verified 08/06/25 23:25 Vital Signs Vital Signs Temp Pulse Resp BP Pulse Ox O2 Del Method 08/07/25 11:00 83 22 H 148/82 H 97 08/07/25 10:02 154/110 H 08/07/25 10:00 76 08/07/25 10:00 81 151/74 H 08/07/25 10:00 97.9 F 86 27 H 98 08/07/25 09:48 104 H 08/07/25 09:42 Room Air 08/07/25 09:26 127 H 148/106 H 08/07/25 09:15 108 H 146/95 H 08/07/25 09:02 104 H 135/92 H 08/07/25 09:00 98 08/07/25 09:00 101 H 21 H 144/97 H 98 08/07/25 08:00 114 H 129/87 08/07/25 08:00 98.1 F 121 H 30 H 129/87 98 08/07/25 07:52 124 H 128/81 08/07/25 07:41 101 H 132/73 08/07/25 07:41 101 H 132/73 08/07/25 07:00 93 23 H 130/84 98 08/07/25 06:00 98.6 F 96 22 H 142/95 H 98 08/07/25 06:00 96 08/07/25 06:00 112 H 139/79 08/07/25 05:25 100 165/106 H 08/07/25 05:11 100 157/96 H 08/07/25 05:00 112 H 22 H 165/106 H 99 08/07/25 04:55 100 157/96 H 08/07/25 04:00 98 08/07/25 04:00 Room Air 08/07/25 04:00 89 151/110 H 08/07/25 04:00 99 F 98 23 H 151/110 H 98 08/07/25 03:00 116 H 22 H 151/105 H 99 08/07/25 02:00 102 H 08/07/25 02:00 102 H 158/114 H 08/07/25 02:00 98.8 F 102 H 20 158/114 H 99 08/07/25 01:30 104 H 169/112 H 08/07/25 01:30 104 H 169/112 H 08/07/25 00:00 78 145/91 H 08/07/25 00:00 98.4 F 79 18 145/91 H 99 08/07/25 00:00 91 08/07/25 00:00 Room Air 08/06/25 23:47 78 163/113 H 08/06/25 22:41 99 151/89 H 08/06/25 22:40 84 20 151/89 H 100 08/06/25 22:16 87 20 180/114 H 100 08/06/25 22:00 87 170/105 H 08/06/25 21:53 97.7 F 70 20 170/105 H 100 08/06/25 21:34 77 20 150/109 H 100 08/06/25 21:11 97 15 157/109 H 100 08/06/25 21:04 95 141/111 H 08/06/25 20:56 89 20 148/102 H 100 08/06/25 20:49 90 20 149/104 H 99 08/06/25 20:40 96 15 169/114 H 100 08/06/25 20:28 62 201/127 H 08/06/25 20:23 61 17 201/127 H 08/06/25 19:52 54 L 21 H 158/117 H 99 08/06/25 19:49 54 L 20 157/112 H 98 08/06/25 19:21 Room Air 08/06/25 19:21 65 18 205/128 H 100 Room Air Exam Narrative: GENERAL APPEARANCE: well developed well nourished male in no acute distress HEENT: normocephalic, atraumatic, normal conjunctiva and sclera, nares patient NECK: no lymphadenopathy, thyromegaly, or JVD MOUTH: normal lips, teeth, and gums CARDIOVASCULAR: RRR, normal S1 and S2, no rub RESPIRATORY: clear anteriorly ABDOMEN: soft, nontender, nondistended, positive bowel sounds present EXTREMITIES: no evidence of cyanosis, clubbing, or edema NEUROLOGICAL: alert and oriented x 3; CN II - XII intact bilaterally; no focal deficits noted Results Lab Results 08/07/25 04:38 08/06/25 19:41 Lab results: Most recent lab results Calcium 9.9 mg/dL (8.4-10.2) 08/06/25 19:41
[2025-08-07 12:39] LABS: Partial Thromboplastin Time 47.4 Seconds (22.3-36.8)
--- NOTE | 2025-08-07 13:30 | PM.CNCAR ---
Assessment and Plan Assessment and plan (1) Cocaine use: Code(s): F14.90 - Cocaine use, unspecified, uncomplicated Status: Acute (2) Hypertensive emergency: Code(s): I16.1 - Hypertensive emergency Status: Acute (3) Non-STEMI (non-ST elevated myocardial infarction): Code(s): I21.4 - Non-ST elevation (NSTEMI) myocardial infarction Status: Acute Plan 29-year-old man with cocaine abuse and hypertension presented with chest discomfort NSTEMI -likely demand ischemia secondary to hypertensive emergency as well as cocaine abuse -trend troponin to peak and obtain a transthoracic echocardiogram -can stop heparin drip -continue aspirin 81 p.o. daily -carvedilol 12.5 p.o. b.i.d. Hypertensive emergency -titrate off nicardipine and start oral medications -carvedilol 12.5 mg p.o. b.i.d. and lisinopril 40 mg p.o. daily -CTA abdomen chest and pelvis did not show any renal artery stenosis Cocaine abuse -Versed and diltiazem p.r.n. -chest pain-free History of Present Illness History of Present Illness Consult date/time: 08/07/25 13:30 Requesting physician: Leonides Mccain MD Consult reason: chest pain Reason For Visit: Hypertensive emergency, NSTEMI Narrative: 29-year-old man with cocaine abuse and hypertension presented with chest discomfort. While he was driving home, he has developed sharp chest pain that is substernal and has not noticed any exacerbating factors. He has not ever had these symptoms before. Denies any associated shortness of breath. He had associated headache that was throbbing as well as jaw pain. By the time he arrived home his pain persisted and given his headache, he decided to present to the emergency room for further evaluation. Upon arrival, his systolic blood pressure was greater than 200 and his diastolic blood pressure was greater than 120. After being started on a Cardene drip, his blood pressure became better controlled and his chest pain has since resolved. Currently denies cocaine use however urine drug screen was positive for cocaine as well as cannabis. Review of Systems Cardiovascular: Cardiovascular: Reports as per HPI Respiratory: Respiratory: Reports as per HPI [facility] Past Medical History Medical History (Updated 08/07/25 @ 11:02 by Leonides Mccain MD) Atrophy of left kidney Essential hypertension Family History Family History (Updated 08/06/25 @ 23:29 by Skylar Brasher RN) Grandparent Hypertension Mother Hypertension Social History Social History Smoking status: Never smoker Second hand tobacco smoke exposure: No Alcohol intake: current Drinks per week: 30 Substance use: current Substance use type: marijuana and crack/cocaine Other substance usage details: cocaine rarely, weed every day Lack of Transportation: No Lack of Food: Never True Current Housing: I Have Housing Concerned About Future Housing: No Difficulty Paying Gas/Electric Bills: No Difficulty Paying for Meds: No Currently Unemployed: No Education: High School Diploma/GED Difficulty w/ Childcare or Family Care: No Spiritual care concerns: No Meds Home Medications and Allergies Home Medications ?Medication ?Instructions ?Recorded ?Confirmed ?Type lisinopril 5 mg tablet 5 mg PO DAILY #14 tabs 09/03/20 08/06/25 Rx Allergies Allergy/AdvReac Type Severity Reaction Status Date / Time No Known Drug Allergies Allergy Unknown Verified 08/06/25 23:25 Vital Signs Vital Signs - 24 hr 08/06/25 19:21 08/06/25 19:21 08/06/25 19:49 Temperature Pulse Rate 65 54 L Respiratory Rate 18 20 Blood Pressure 205/128 H 157/112 H Pulse Oximetry 100 98 Oxygen Delivery Room Air Room Air 08/06/25 19:52 08/06/25 20:23 08/06/25 20:28 Temperature Pulse Rate 54 L 61 62 Respiratory Rate 21 H 17 Blood Pressure 158/117 H 201/127 H 201/127 H Pulse Oximetry 99 Oxygen Delivery 08/06/25 20:40 08/06/25 20:49 08/06/25 20:56 Temperature Pulse Rate 96 90 89 Respiratory Rate 15 20 20 Blood Pressure 169/114 H 149/104 H 148/102 H Pulse Oximetry 100 99 100 Oxygen Delivery 08/06/25 21:04 08/06/25 21:11 08/06/25 21:34 Temperature Pulse Rate 95 97 77 Respiratory Rate 15 20 Blood Pressure 141/111 H 157/109 H 150/109 H Pulse Oximetry 100 100 Oxygen Delivery 08/06/25 21:53 08/06/25 22:00 08/06/25 22:16 Temperature 36.5 C Pulse Rate 70 87 87 Respiratory Rate 20 20 Blood Pressure 170/105 H 170/105 H 180/114 H Pulse Oximetry 100 100 Oxygen Delivery 08/06/25 22:40 08/06/25 22:41 08/06/25 23:47 Temperature Pulse Rate 84 99 78 Respiratory Rate 20 Blood Pressure 151/89 H 151/89 H 163/113 H Pulse Oximetry 100 Oxygen Delivery 08/07/25 00:00 08/07/25 00:00 08/07/25 00:00 Temperature 36.9 C Pulse Rate 91 79 Respiratory Rate 18 Blood Pressure 145/91 H Pulse Oximetry 99 Oxygen Delivery Room Air 08/07/25 00:00 08/07/25 01:30 08/07/25 01:30 Temperature Pulse Rate 78 104 H 104 H Respiratory Rate Blood Pressure 145/91 H 169/112 H 169/112 H Pulse Oximetry Oxygen Delivery 08/07/25 02:00 08/07/25 02:00 08/07/25 02:00 Temperature 37.1 C Pulse Rate 102 H 102 H 102 H Respiratory Rate 20 Blood Pressure 158/114 H 158/114 H Pulse Oximetry 99 Oxygen Delivery 08/07/25 03:00 08/07/25 04:00 08/07/25 04:00 Temperature 37.2 C Pulse Rate 116 H 98 89 Respiratory Rate 22 H 23 H Blood Pressure 151/105 H 151/110 H 151/110 H Pulse Oximetry 99 98 Oxygen Delivery 08/07/25 04:00 08/07/25 04:00 08/07/25 04:55 Temperature Pulse Rate 98 100 Respiratory Rate Blood Pressure 157/96 H Pulse Oximetry Oxygen Delivery Room Air 08/07/25 05:00 08/07/25 05:11 08/07/25 05:25 Temperature Pulse Rate 112 H 100 100 Respiratory Rate 22 H Blood Pressure 165/106 H 157/96 H 165/106 H Pulse Oximetry 99 Oxygen Delivery 08/07/25 06:00 08/07/25 06:00 08/07/25 06:00 Temperature 37.0 C Pulse Rate 112 H 96 96 Respiratory Rate 22 H Blood Pressure 139/79 142/95 H Pulse Oximetry 98 Oxygen Delivery 08/07/25 07:00 08/07/25 07:41 08/07/25 07:41 Temperature Pulse Rate 93 101 H 101 H Respiratory Rate 23 H Blood Pressure 130/84 132/73 132/73 Pulse Oximetry 98 Oxygen Delivery 08/07/25 07:52 08/07/25 08:00 08/07/25 08:00 Temperature 36.7 C Pulse Rate 124 H 121 H 114 H Respiratory Rate 30 H Blood Pressure 128/81 129/87 129/87 Pulse Oximetry 98 Oxygen Delivery 08/07/25 09:00 08/07/25 09:00 08/07/25 09:02 Temperature Pulse Rate 101 H 98 104 H Respiratory Rate 21 H Blood Pressure 144/97 H 135/92 H Pulse Oximetry 98 Oxygen Delivery 08/07/25 09:15 08/07/25 09:26 08/07/25 09:42 Temperature Pulse Rate 108 H 127 H Respiratory Rate Blood Pressure 146/95 H 148/106 H Pulse Oximetry Oxygen Delivery Room Air 08/07/25 09:48 08/07/25 10:00 08/07/25 10:00 Temperature 36.6 C Pulse Rate 104 H 86 81 Respiratory Rate 27 H Blood Pressure 151/74 H Pulse Oximetry 98 Oxygen Delivery 08/07/25 10:00 08/07/25 10:02 08/07/25 11:00 Temperature Pulse Rate 76 83 Respiratory Rate 22 H Blood Pressure 154/110 H 148/82 H Pulse Oximetry 97 Oxygen Delivery 08/07/25 12:00 08/07/25 12:18 08/07/25 12:19 Temperature 36.8 C Pulse Rate 77 76 Respiratory Rate 19 Blood Pressure 151/99 H Pulse Oximetry 97 Oxygen Delivery Room Air Exam Const: General: comfortable HENMT: Mouth: Yes moist mucous membranes Eyes: EOM: EOMs intact bilaterally Neck: Neck: no JVD Resp: Effort & Inspection: normal respiratory effort Auscultation: clear to auscultation bilaterally Cardio: Rate: regular rate Rhythm: regular rhythm GI: GI Palp: Yes Soft to palpation Neuro: Speech: normal speech Results Labs and Meds 08/07/25 04:38 08/06/25 19:41 Lab results: Cardiac Enzymes 08/06/25 08/06/25 08/07/25 Range/Units 19:41 22:46 01:19 AST 128 H (17-59) U/L Troponin I 3.920 H* 6.400 H* D 9.130 H* D (0.000-0.034) ng/mL Coagulation 08/06/25 08/06/25 08/07/25 Range/Units 19:41 22:46 04:38 PT 13.3 14.1 (11.1-14.7) Seconds APTT 27.0 81.4 H 32.6 (22.3-36.8) Seconds 08/07/25 Range/Units 12:22 PT (11.1-14.7) Seconds APTT 47.4 H (22.3-36.8) Seconds CBC 08/06/25 08/06/25 08/07/25 Range/Units 19:41 22:46 04:38 WBC 12.9 H 15.7 H 14.7 H (4.5-10.0) K/mm3 RBC 5.53 5.62 5.96 (4.6-6.20) M/mm3 Hgb 17.0 16.9 18.1 H (14.0-18.0) g/dL Hct 47.4 48.1 52.0 (42.0-52.0) % Plt Count 274 243 276 (150-375) k/mm3 Lymph # (Auto) 1.36 1.05 1.23 (0.9-3.2) K/mm3 [place] # (Auto) 0.7 H 0.9 H 1.0 H (0.1-0.6) K/mm3 Eos # (Auto) 0.0 0.0 0.0 (0-0.3) K/mm3 Baso # (Auto) 0.1 0.1 0.0 (0.0-0.1) K/mm3 Comprehensive Metabolic Panel 08/06/25 Range/Units 19:41 Sodium 137 (137-145) mmol/L Potassium 4.0 (3.4-5.0) mmol/L Chloride 99 (98-107) mmol/L Carbon Dioxide 30 (22-30) mmol/L BUN 9 (9-20) mg/dL Creatinine 1.14 (0.7-1.3) mg/dL Glucose 114 H (65-110) mg/dL Calcium 9.9 (8.4-10.2) mg/dL AST 128 H (17-59) U/L ALT 55 H (6-50) U/L Alkaline Phosphatase 114 (38-126) U/L Total Protein 8.6 H (6.3-8.2) g/dL Albumin 4.8 (3.5-5.1) g/dL Intake and Output 08/06/25 08/07/25 08/07/25 23:59 07:59 15:59 Intake Total 125.2 549.3 152.3 Output Total 500 1600 Balance -374.8 -1050.7 152.3 Intake: IV 125.2 549.3 152.3 Heparin Sod/D5w 100 Units/ml 25 77.7 76.2 ,000 units In 250 ml @ 1,200 UNITS/HR 12 mls/hr IV CONT . [id number] JANIA Rx#:[id number] niCARdipine 20 MG/200 ML 20 mg 125.2 471.6 76.1 In 200 ml @ 0 mls/hr IV CONT . Q0M JANIA Rx#:[id number] Output: Urine 500 1600 Other: # Unmeasured Voids 1 Patient Weight 08/07/25 23:59 Weight 90.1 kg
--- NOTE | 2025-08-07 15:43 | ECG_ITS ---
Test Date: 2025-08-07 15:57:50 Measurements Intervals [place] Rate: 82 P: 29 RI: 149 QRS: 5 QRSD: 110 T: 129 QT: 392 QTc: 458 Interpretive Statements SINUS RHYTHM POSSIBLE LEFT ATRIAL ENLARGEMENT LEFT VENTRICULAR HYPERTROPHY WITH ST-T CHANGE ST-T WAVE ABNORMALITY IN INFERIOR LEADS- CONSIDER ISCHEMIA PEAKED T WAVES- CONSIDER HYPERKALEMIA ABNORMAL ECG Compared to ECG 08/07/2025 02:37:48 HEART RATE HAS DECREASED Electronically Signed On 08-07-2025 16:02:18 [employer] by Sarabjit Giles D.O.
[2025-08-07 16:01] LABS: Troponin I 48.700 ng/mL (0.000-0.034)
--- NOTE | 2025-08-07 16:28 | P.PNIM_ITS ---
Assessment and Plan Assessment and Plan (1) Hypertensive emergency: Code(s): I16.1 - Hypertensive emergency Status: Acute (2) Non-STEMI (non-ST elevated myocardial infarction): Code(s): I21.4 - Non-ST elevation (NSTEMI) myocardial infarction Status: Acute (3) Cocaine use: Code(s): F14.90 - Cocaine use, unspecified, uncomplicated Status: Acute (4) Cannabis abuse: Code(s): F12.10 - Cannabis abuse, uncomplicated Status: Acute (5) Agenesis of left kidney: Code(s): Q60.0 - Renal agenesis, unilateral Status: Acute Plan This is a 29-year-old male presents to the ED with chest pain and heaviness for the past 3-4 days with sudden onset severe headache that started several hours ago. Patient stated his pain is radiating up to his jaw from a chest and having intense headache. His blood pressure has been elevated as well. He does have history of hypertension but does not take any blood pressure medication regularly. No nausea vomiting. No fever chills no shortness of breath no or arm or leg weakness. No facial asymmetry. On ED evaluation he was found to have extremely elevated blood pressure add 205/128. EKG showed left ventricular hypertrophy with some ST depressions in the inferior leads. Laboratory studies showed a WBC of 12.9 hemoglobin 17 platelet count 274. Sodium 137 potassium 4 chloride 99 bicarbonate 30 BUN 9 creatinine 1.1 blood glucose 114. LFTs with total bilirubin of 1.2 AST 128 ALT 55 alkaline phosphatase 114. Lipase was elevated at 348. Troponin came back elevated at 3.92. CT head showed no acute intracranial findings. CT angiogram of the chest showed no PE or dissection. Cardiology was consulted for EKG changes and elevated troponin. Due to elevated blood pressure recommendation was to control blood pressure and took heparinized. A received IV labetalol in the ER however subsequently was placed on nicardipine drip.. Chest x-ray showed some cardiomegaly with no acute findings formal report pending. Patient is admitted to the ICU for further treatment. Since control of blood pressure is symptoms as significantly improved. Hypertensive emergency with elevated blood pressure 205/128 on presentation with non-STEMI started on nicardipine drip. This a.m. has been started on oral medication with lisinopril and carvedilol. Off nicardipine drip. Continue to monitor blood pressure. Secondary causes of hypertension workup in process. Will also do apnea link Non-STEMI with elevated troponin and ST changes in the EKG could be related to hypertensive emergency. Heparin drip started cardiology has been consulted from the ER. Echo with EF normal no significant valvular abnormalities. Troponin continues to trend up to 48 this a.m. aspirin 81 mg daily and carvedilol. Okay to stop heparin drip per Cardiology. Also associated cocaine abuse Hypertension uncontrolled and untreated prior to admission. Evaluate for secondary causes of hypertension. Check ApneaLink. Renal artery duplex Headache CT head is negative for any intracranial findings. Likely due to hypertension. Continue to monitor. MRI brain ordered Elevated liver enzymes CT with hepatomegaly and hepatic steatosis. [place] profile negative. Urine screen positive for cocaine and cannabinoids. History of Cocaine abuse. Admits to using cocaine in the past last use a month ago. 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 Transferred out of the ICU. Nicardipine off this a.m.. On oral medications. Review of Systems Review of Systems: All systems reviewed & are unremarkable except as noted in HPI and below Exam Narrative: GENERAL: Well-appearing not in acute distress HEAD: Normocephalic, atraumatic. EYES: [PERRLA and EOMI.] ENT: Nares clear, no rhinorrhea or epistaxis. Mucous membranes moist. NECK: Supple. CHEST: Clear to auscultation. No respiratory distress. HEART: Regular rate and rhythm ABDOMEN: Soft, nondistended, nontender, No rigidity or guarding EXTREMITIES: Normal range of motion. No edema. SKIN: Warm, dry, no rash. NEURO: No focal deficits. Alert and oriented x3. PSYCH: Normal mood and affect. Objective Data Vital Signs Vital Signs: Vital Signs - 24 hr 08/06/25 19:21 08/06/25 19:21 08/06/25 19:49 Temperature Pulse Rate 65 54 L Respiratory Rate 18 20 Blood Pressure 205/128 H 157/112 H Pulse Oximetry 100 98 Oxygen Delivery Room Air Room Air 08/06/25 19:52 08/06/25 20:23 08/06/25 20:28 Temperature Pulse Rate 54 L 61 62 Respiratory Rate 21 H 17 Blood Pressure 158/117 H 201/127 H 201/127 H Pulse Oximetry 99 Oxygen Delivery 08/06/25 20:40 08/06/25 20:49 08/06/25 20:56 Temperature Pulse Rate 96 90 89 Respiratory Rate 15 20 20 Blood Pressure 169/114 H 149/104 H 148/102 H Pulse Oximetry 100 99 100 Oxygen Delivery 08/06/25 21:04 08/06/25 21:11 08/06/25 21:34 Temperature Pulse Rate 95 97 77 Respiratory Rate 15 20 Blood Pressure 141/111 H 157/109 H 150/109 H Pulse Oximetry 100 100 Oxygen Delivery 08/06/25 21:53 08/06/25 22:00 08/06/25 22:16 Temperature 97.7 F Pulse Rate 70 87 87 Respiratory Rate 20 20 Blood Pressure 170/105 H 170/105 H 180/114 H Pulse Oximetry 100 100 Oxygen Delivery 08/06/25 22:40 08/06/25 22:41 08/06/25 23:47 Temperature Pulse Rate 84 99 78 Respiratory Rate 20 Blood Pressure 151/89 H 151/89 H 163/113 H Pulse Oximetry 100 Oxygen Delivery 08/07/25 00:00 08/07/25 00:00 08/07/25 00:00 Temperature 98.4 F Pulse Rate 91 79 Respiratory Rate 18 Blood Pressure 145/91 H Pulse Oximetry 99 Oxygen Delivery Room Air 08/07/25 00:00 08/07/25 01:30 08/07/25 01:30 Temperature Pulse Rate 78 104 H 104 H Respiratory Rate Blood Pressure 145/91 H 169/112 H 169/112 H Pulse Oximetry Oxygen Delivery 08/07/25 02:00 08/07/25 02:00 08/07/25 02:00 Temperature 98.8 F Pulse Rate 102 H 102 H 102 H Respiratory Rate 20 Blood Pressure 158/114 H 158/114 H Pulse Oximetry 99 Oxygen Delivery 08/07/25 03:00 08/07/25 04:00 08/07/25 04:00 Temperature 99 F Pulse Rate 116 H 98 89 Respiratory Rate 22 H 23 H Blood Pressure 151/105 H 151/110 H 151/110 H Pulse Oximetry 99 98 Oxygen Delivery 08/07/25 04:00 08/07/25 04:00 08/07/25 04:55 Temperature Pulse Rate 98 100 Respiratory Rate Blood Pressure 157/96 H Pulse Oximetry Oxygen Delivery Room Air 08/07/25 05:00 08/07/25 05:11 08/07/25 05:25 Temperature Pulse Rate 112 H 100 100 Respiratory Rate 22 H Blood Pressure 165/106 H 157/96 H 165/106 H Pulse Oximetry 99 Oxygen Delivery 08/07/25 06:00 08/07/25 06:00 08/07/25 06:00 Temperature 98.6 F Pulse Rate 112 H 96 96 Respiratory Rate 22 H Blood Pressure 139/79 142/95 H Pulse Oximetry 98 Oxygen Delivery 08/07/25 07:00 08/07/25 07:41 08/07/25 07:41 Temperature Pulse Rate 93 101 H 101 H Respiratory Rate 23 H Blood Pressure 130/84 132/73 132/73 Pulse Oximetry 98 Oxygen Delivery 08/07/25 07:52 08/07/25 08:00 08/07/25 08:00 Temperature 98.1 F Pulse Rate 124 H 121 H 114 H Respiratory Rate 30 H Blood Pressure 128/81 129/87 129/87 Pulse Oximetry 98 Oxygen Delivery 08/07/25 09:00 08/07/25 09:00 08/07/25 09:02 Temperature Pulse Rate 101 H 98 104 H Respiratory Rate 21 H Blood Pressure 144/97 H 135/92 H Pulse Oximetry 98 Oxygen Delivery 08/07/25 09:15 08/07/25 09:26 08/07/25 09:42 Temperature Pulse Rate 108 H 127 H Respiratory Rate Blood Pressure 146/95 H 148/106 H Pulse Oximetry Oxygen Delivery Room Air 08/07/25 09:48 08/07/25 10:00 08/07/25 10:00 Temperature 97.9 F Pulse Rate 104 H 86 81 Respiratory Rate 27 H Blood Pressure 151/74 H Pulse Oximetry 98 Oxygen Delivery 08/07/25 10:00 08/07/25 10:02 08/07/25 11:00 Temperature Pulse Rate 76 83 Respiratory Rate 22 H Blood Pressure 154/110 H 148/82 H Pulse Oximetry 97 Oxygen Delivery 08/07/25 12:00 08/07/25 12:18 08/07/25 12:19 Temperature 98.2 F Pulse Rate 77 76 Respiratory Rate 19 Blood Pressure 151/99 H Pulse Oximetry 97 Oxygen Delivery Room Air 08/07/25 14:00 08/07/25 16:00 08/07/25 16:00 Temperature Pulse Rate 79 89 Respiratory Rate Blood Pressure Pulse Oximetry Oxygen Delivery Room Air Intake/Output Intake/Output: Intake & Output 08/04/25 08/05/25 08/06/25 08/07/25 23:59 23:59 23:59 23:59 Intake Total 125.2 821.6 Output Total 500 1600 Balance -374.8 -778.4 Meds/Results Medications: Active Medications Generic Name Dose Route Start Last Admin Trade Name Freq PRN Reason Stop Dose Admin Acetaminophen 650 mg 08/06/25 21:28 Acetaminophen 325 Mg Tablet PO Q4H PRN Mild Pain (1-3) or Fever Aspirin 81 mg 08/07/25 09:00 08/07/25 09:48 Aspirin 81 Mg Enteric Tablet PO 81 mg QAM JANIA Administration Carvedilol 12.5 mg 08/07/25 09:00 08/07/25 09:48 Carvedilol 12.5 Mg Tablet PO 12.5 mg Q12HR JANIA Administration Hydralazine HCl 20 mg 08/07/25 08:59 Hydralazine Hcl 20 Mg/Ml Vial IV PUSH Q4H PRN SBP more than 160 Labetalol HCl 20 mg 08/07/25 08:59 Labetalol Hcl Inj 100 Mg/20 Ml Vial IV PUSH Q4H PRN SBP > 160 and HR> 60 -1st choice Lisinopril 40 mg 08/07/25 09:00 08/07/25 09:48 Lisinopril 20 Mg Tablet PO 40 mg QAM JANIA Administration Morphine Sulfate 4 mg 08/06/25 21:28 Morphine Sulfate (*Crx) 4 Mg/Ml Inj IV PUSH Q2H PRN Pain Rated 7-10 Ondansetron HCl 4 mg 08/06/25 21:28 Ondansetron Inj 4 Mg/2 Ml Vial IV PUSH Q4H PRN Nausea Radiology Results: ITS Impressions Chest X-Ray 08/07/25 06:34 IMPRESSION: 1. Heart size enlarged. 2. Lungs clear. Chest/Abdomen/Pelvis CTA 08/07/25 06:40 IMPRESSION: 1. Chronic air trapping in basilar left lung lower lobe. 2. Cardiomegaly. 3. Severe atrophy of left kidney. Head CT 08/07/25 06:58 IMPRESSION: 1. No acute intracranial findings. Labs Labs: Laboratory Results - last 24 hr 08/06/25 08/06/25 08/06/25 19:41 21:10 21:10 WBC 12.9 H RBC 5.53 Hgb 17.0 Hct 47.4 MCV 85.7 MCH 30.7 MCHC 35.9 RDW 12.0 Plt Count 274 MPV 8.8 Immature Gran % (Auto) 0.5 Neut % (Auto) 82.7 H Lymph % (Auto) 10.5 L [place] % (Auto) 5.7 Eos % (Auto) 0.2 Baso % (Auto) 0.4 Lymph # (Auto) 1.36 [place] # (Auto) 0.7 H Eos # (Auto) 0.0 Baso # (Auto) 0.1 Abs Immat Gran (auto) 0.06 H Absolute Neuts (auto) 10.7 H Absolute Nucleated RBC 0.000 Nucleated RBC % 0.0 PT 13.3 INR 1.0 APTT 27.0 Sodium 137 Potassium 4.0 Chloride 99 Carbon Dioxide 30 Anion Gap 8 BUN 9 Creatinine 1.14 Estim Creat Clear Calc 93 Estimated GFR > 60 Glucose 114 H Calcium 9.9 Total Bilirubin 1.2 AST 128 H ALT 55 H Alkaline Phosphatase 114 Troponin I 3.920 H* Total Protein 8.6 H Albumin 4.8 Lipase 348 H TSH (Reflex) Cortisol Baseline Nasal MRSA (PCR) Ur Butalbital Screen Cancelled U Butalbital Confirm Cancelled Urine Opiates Screen Cancelled Negative Ur Opiates Confirm Cancelled Ur Codeine Screen Cancelled Urine Codeine Confirm Cancelled Ur Morphine Screen Cancelled U 6-Acetylmorphine Conf Cancelled Ur Morphine Confirm Cancelled Urine Methadone Screen Negative Ur Barbiturates Screen Cancelled Urine Barbiturates Ur Phencyclidine Scrn Ur Amphetamine Screen Ur Amphetamines Screen U Amphetam Cnfrm GC/MS U Amphetamines Confirm U Methamphetamines Scrn U Methamphetamin Confrm Ur Amobarbital Screen Ur Amobarbital Confirm U Pentobarbital Scrn U Pentobarbital Conf U Phenobarbital Scrn U Phenobarbital Confirm U Secobarbital Screen U Secobarbital Confirm U Benzodiazepines Scrn Urine Cocaine Screen U Cocaine Metab Screen U Cocaine Metab Confirm Ur Benzoylecognine Conf U Cannabinoids Screen Urine Cannabinoids Ur Carboxy THC Confirm Adltrnts U Creatinine Adlt U Specific [place] Adulterants Ur Nitrites Hepatitis A IgM Ab Hep Bs Antigen Hep B Core IgM Ab Hepatitis C Ab Screen 08/06/25 08/06/25 08/06/25 21:10 21:10 21:10 WBC RBC Hgb Hct MCV MCH MCHC RDW Plt Count MPV Immature Gran % (Auto) Neut % (Auto) Lymph % (Auto) [place] % (Auto) Eos % (Auto) Baso % (Auto) Lymph # (Auto) [place] # (Auto) Eos # (Auto) Baso # (Auto) Abs Immat Gran (auto) Absolute Neuts (auto) Absolute Nucleated RBC Nucleated RBC % PT INR APTT Sodium Potassium Chloride Carbon Dioxide Anion Gap BUN Creatinine Estim Creat Clear Calc Estimated GFR Glucose Calcium Total Bilirubin AST ALT Alkaline Phosphatase Troponin I Total Protein Albumin Lipase TSH (Reflex) Cortisol Baseline Nasal MRSA (PCR) Ur Butalbital Screen U Butalbital Confirm Urine Opiates Screen Ur Opiates Confirm Ur Codeine Screen Urine Codeine Confirm Ur Morphine Screen U 6-Acetylmorphine Conf Ur Morphine Confirm Urine Methadone Screen Ur Barbiturates Screen Negative Urine Barbiturates Cancelled Ur Phencyclidine Scrn Negative Ur Amphetamine Screen Negative Ur Amphetamines Screen Cancelled Cancelled U Amphetam Cnfrm GC/MS Cancelled U Amphetamines Confirm Cancelled U Methamphetamines Scrn Cancelled U Methamphetamin Confrm Cancelled Ur Amobarbital Screen Cancelled Ur Amobarbital Confirm Cancelled U Pentobarbital Scrn Cancelled U Pentobarbital Conf Cancelled U Phenobarbital Scrn Cancelled U Phenobarbital Confirm Cancelled U Secobarbital Screen Cancelled U Secobarbital Confirm Cancelled U Benzodiazepines Scrn Negative Urine Cocaine Screen Positive A U Cocaine Metab Screen Cancelled U Cocaine Metab Confirm Cancelled Ur Benzoylecognine Conf Cancelled U Cannabinoids Screen Cancelled Positive A Urine Cannabinoids Cancelled Ur Carboxy THC Confirm Cancelled Adltrnts U Creatinine Cancelled Adlt U Specific [place] Cancelled Adulterants Ur Nitrites Cancelled Hepatitis A IgM Ab Hep Bs Antigen Hep B Core IgM Ab Hepatitis C Ab Screen 08/06/25 08/06/25 08/07/25 21:45 22:46 01:19 WBC 15.7 H RBC 5.62 Hgb 16.9 Hct 48.1 MCV 85.6 MCH 30.1 MCHC 35.1 RDW 12.0 Plt Count 243 MPV 8.7 Immature Gran % (Auto) 0.4 Neut % (Auto) 86.6 H Lymph % (Auto) 6.7 L [place] % (Auto) 6.0 Eos % (Auto) 0.0 Baso % (Auto) 0.3 Lymph # (Auto) 1.05 [place] # (Auto) 0.9 H Eos # (Auto) 0.0 Baso # (Auto) 0.1 Abs Immat Gran (auto) 0.07 H Absolute Neuts (auto) 13.6 H Absolute Nucleated RBC 0.000 Nucleated RBC % 0.0 PT 14.1 INR 1.1 APTT 81.4 H Sodium Potassium Chloride Carbon Dioxide Anion Gap BUN Creatinine Estim Creat Clear Calc Estimated GFR Glucose Calcium Total Bilirubin AST ALT Alkaline Phosphatase Troponin I 6.400 H* D 9.130 H* D Total Protein Albumin Lipase TSH (Reflex) 0.646 Cortisol Baseline Nasal MRSA (PCR) Not detected Ur Butalbital Screen U Butalbital Confirm Urine Opiates Screen Ur Opiates Confirm Ur Codeine Screen Urine Codeine Confirm Ur Morphine Screen U 6-Acetylmorphine Conf Ur Morphine Confirm Urine Methadone Screen Ur Barbiturates Screen Urine Barbiturates Ur Phencyclidine Scrn Ur Amphetamine Screen Ur Amphetamines Screen U Amphetam Cnfrm GC/MS U Amphetamines Confirm U Methamphetamines Scrn U Methamphetamin Confrm Ur Amobarbital Screen Ur Amobarbital Confirm U Pentobarbital Scrn U Pentobarbital Conf U Phenobarbital Scrn U Phenobarbital Confirm U Secobarbital Screen U Secobarbital Confirm U Benzodiazepines Scrn Urine Cocaine Screen U Cocaine Metab Screen U Cocaine Metab Confirm Ur Benzoylecognine Conf U Cannabinoids Screen Urine Cannabinoids Ur Carboxy THC Confirm Adltrnts U Creatinine Adlt U Specific [place] Adulterants Ur Nitrites Hepatitis A IgM Ab Negative Hep Bs Antigen Negative Hep B Core IgM Ab Negative Hepatitis C Ab Screen Negative 08/07/25 08/07/25 08/07/25 04:38 07:55 12:22 WBC 14.7 H RBC 5.96 Hgb 18.1 H Hct 52.0 MCV 87.2 MCH 30.4 MCHC 34.8 RDW 12.3 Plt Count 276 MPV 9.0 Immature Gran % (Auto) 0.5 Neut % (Auto) 84.0 H Lymph % (Auto) 8.4 L [place] % (Auto) 6.7 Eos % (Auto) 0.1 Baso % (Auto) 0.3 Lymph # (Auto) 1.23 [place] # (Auto) 1.0 H Eos # (Auto) 0.0 Baso # (Auto) 0.0 Abs Immat Gran (auto) 0.08 H Absolute Neuts (auto) 12.3 H Absolute Nucleated RBC 0.000 Nucleated RBC % 0.0 PT INR APTT 32.6 47.4 H Sodium Potassium Chloride Carbon Dioxide Anion Gap BUN Creatinine Estim Creat Clear Calc Estimated GFR Glucose Calcium Total Bilirubin AST ALT Alkaline Phosphatase Troponin I Total Protein Albumin Lipase TSH (Reflex) Cortisol Baseline 20.70 Nasal MRSA (PCR) Ur Butalbital Screen U Butalbital Confirm Urine Opiates Screen Ur Opiates Confirm Ur Codeine Screen Urine Codeine Confirm Ur Morphine Screen U 6-Acetylmorphine Conf Ur Morphine Confirm Urine Methadone Screen Ur Barbiturates Screen Urine Barbiturates Ur Phencyclidine Scrn Ur Amphetamine Screen Ur Amphetamines Screen U Amphetam Cnfrm GC/MS U Amphetamines Confirm U Methamphetamines Scrn U Methamphetamin Confrm Ur Amobarbital Screen Ur Amobarbital Confirm U Pentobarbital Scrn U Pentobarbital Conf U Phenobarbital Scrn U Phenobarbital Confirm U Secobarbital Screen U Secobarbital Confirm U Benzodiazepines Scrn Urine Cocaine Screen U Cocaine Metab Screen U Cocaine Metab Confirm Ur Benzoylecognine Conf U Cannabinoids Screen Urine Cannabinoids Ur Carboxy THC Confirm Adltrnts U Creatinine Adlt U Specific [place] Adulterants Ur Nitrites Hepatitis A IgM Ab Hep Bs Antigen Hep B Core IgM Ab Hepatitis C Ab Screen 08/07/25 15:01 WBC RBC Hgb Hct MCV MCH MCHC RDW Plt Count MPV Immature Gran % (Auto) Neut % (Auto) Lymph % (Auto) [place] % (Auto) Eos % (Auto) Baso % (Auto) Lymph # (Auto) [place] # (Auto) Eos # (Auto) Baso # (Auto) Abs Immat Gran (auto) Absolute Neuts (auto) Absolute Nucleated RBC Nucleated RBC % PT INR APTT Sodium Potassium Chloride Carbon Dioxide Anion Gap BUN Creatinine Estim Creat Clear Calc Estimated GFR Glucose Calcium Total Bilirubin AST ALT Alkaline Phosphatase Troponin I 48.700 H* Total Protein Albumin Lipase TSH (Reflex) Cortisol Baseline Nasal MRSA (PCR) Ur Butalbital Screen U Butalbital Confirm Urine Opiates Screen Ur Opiates Confirm Ur Codeine Screen Urine Codeine Confirm Ur Morphine Screen U 6-Acetylmorphine Conf Ur Morphine Confirm Urine Methadone Screen Ur Barbiturates Screen Urine Barbiturates Ur Phencyclidine Scrn Ur Amphetamine Screen Ur Amphetamines Screen U Amphetam Cnfrm GC/MS U Amphetamines Confirm U Methamphetamines Scrn U Methamphetamin Confrm Ur Amobarbital Screen Ur Amobarbital Confirm U Pentobarbital Scrn U Pentobarbital Conf U Phenobarbital Scrn U Phenobarbital Confirm U Secobarbital Screen U Secobarbital Confirm U Benzodiazepines Scrn Urine Cocaine Screen U Cocaine Metab Screen U Cocaine Metab Confirm Ur Benzoylecognine Conf U Cannabinoids Screen Urine Cannabinoids Ur Carboxy THC Confirm Adltrnts U Creatinine Adlt U Specific [place] Adulterants Ur Nitrites Hepatitis A IgM Ab Hep Bs Antigen Hep B Core IgM Ab Hepatitis C Ab Screen
[2025-08-07 22:30] LABS: Troponin I 69.400 ng/mL (0.000-0.034)
[2025-08-08] VITALS (34 sets, daily range): BP systolic 114–151; BP diastolic 72–123; PULSE 48–103; RESP 16–22; TEMP 36.3–38.3; O2SAT 98–100
[2025-08-08 06:25] LABS: Hematocrit 51.4 % (42.0-52.0); Hemoglobin 18.1 g/dL (14.0-18.0); Mean Corpuscular HGB Conc 35.2 g/dl (32-36); Mean Corpuscular Hemoglobin 30.6 pg (26-34); Mean Corpuscular Volume 87.0 fl (80-100); Platelet Count Result 274 k/mm3 (150-375); Red Blood Count 5.91 M/mm3 (4.6-6.20); White Blood Count 17.8 K/mm3 (4.5-10.0)
[2025-08-08 06:49] LABS: Alanine Aminotransferase 93 U/L (6-50); Albumin Level 4.6 g/dL (3.5-5.1); Alkaline Phosphatase 102 U/L (38-126); Anion Gap 9 mmol/L (4-12); Aspartate Amino Transferase 424 U/L (17-59); Bilirubin,Total 2.6 mg/dL (0.2-1.3); Blood Urea Nitrogen 18 mg/dL (9-20); Calcium 9.9 mg/dL (8.4-10.2); Carbon Dioxide 26 mmol/L (22-30); Chloride 99 mmol/L (98-107); Estimated CRCL calculation 93 ml/min; Estimated Glomerular Filt Rate > 60; Glucose 120 mg/dL (65-110); Magnesium 2.0 mg/dL (1.6-2.3); Potassium 3.8 mmol/L (3.4-5.0); Sodium 134 mmol/L (137-145); Total Protein 8.5 g/dL (6.3-8.2)
[2025-08-08] MEDS: ASPIRIN 81 MG ENTERIC TABLET PO (08:33)
--- NOTE | 2025-08-08 09:46 | PM.PNCARD ---
Progress Note: A&P Assessment and Plan (1) Non-STEMI (non-ST elevated myocardial infarction): Code(s): I21.4 - Non-ST elevation (NSTEMI) myocardial infarction Status: Acute (2) Hypertensive emergency: Code(s): I16.1 - Hypertensive emergency Status: Acute (3) Atrophy of left kidney: Code(s): N26.1 - Atrophy of kidney (terminal) Status: Acute (4) Cannabis abuse: Code(s): F12.10 - Cannabis abuse, uncomplicated Status: Acute (5) Cocaine use: Code(s): F14.90 - Cocaine use, unspecified, uncomplicated Status: Acute Plan Assessment: NSTEMI Hypertensive emergency-SBP greater than 200 mm Hg at presentation Polysubstance abuse-cocaine, cannabis Atrophic left kidney-since Plan: Patient presented with chest pain and jaw pain. He has not had recurrence of pain today. His blood pressure is better controlled with SBP in the 140s to 150s range. However, troponin continues to rise to 48, and now 69. EKG showed ST depressions in inferior leads suggestive of ischemia. TTE showed inferior hypokinesis. Given these findings, recommend ischemia evaluation with coronary angiogram and possible PCI. Risks, benefits, and alternatives discussed with patient in detail and he is willing to proceed. Continue aspirin 81 mg daily Add atorvastatin 80 mg daily Check fasting lipid panel Continue Coreg 12.5 mg p.o. b.i.d. and lisinopril 40 mg daily, both initiated today Sublingual nitroglycerin 0.4 mg Q 5 minutes x 3 p.r.n. for chest pain EKG p.r.n. for chest pain Continue monitoring on telemetry Counseled about stopping cocaine and cannabis use Time Spent With Patient Time: 65 minutes total time including counseling and coordination of care. Subjective Date/time seen: 08/08/25 09:46 Interval history: Reason for encounter: Hypertensive urgency, NSTEMI Relevant history: 29-year-old male with past medical history of atrophic left kidney, substance abuse presented with chief complaint of chest pain with radiation to the jaw and headache. He was noted to have hypertensive emergency with SBP greater than 200 mm Hg at presentation. He required nicardipine drip which has 80 dose. His blood pressure is better controlled now. Troponin is elevated and is continuing to rise currently at 69. EKG showed sinus rhythm with ST depressions in inferior leads, LVH. TTE showed normal LVEF but hypokinesis in inferior wall. Cardiology is consulted for NSTEMI. Interval history: Patient denies chest pain or shortness of breath this morning. Troponin continue to rise. Telemetry shows sinus rhythm. Review of Systems Cardiovascular: Comments: As per HPI. Respiratory: Comments: As per HPI. Exam Narrative: General: Alert oriented x3, no acute distress Neck: Supple, no JVD Chest: Bilaterally clear to auscultation, no rales or rhonchi Cardiac: S1, S2 +, regular rate, regular rhythm, no murmurs or rubs Extremities: No pedal edema, no skin rash Neurologic: Alert and oriented x3, no focal neurological deficits Objective Data Vital Signs Vital Signs: Vital Signs - 24 hr 08/07/25 09:48 08/07/25 10:00 08/07/25 10:00 Temperature 36.6 C Pulse Rate 104 H 86 81 Respiratory Rate 27 H Blood Pressure 151/74 H Pulse Oximetry 98 Oxygen Delivery 08/07/25 10:00 08/07/25 10:02 08/07/25 11:00 Temperature Pulse Rate 76 83 Respiratory Rate 22 H Blood Pressure 154/110 H 148/82 H Pulse Oximetry 97 Oxygen Delivery 08/07/25 12:00 08/07/25 12:18 08/07/25 12:19 Temperature 36.8 C Pulse Rate 77 76 Respiratory Rate 19 Blood Pressure 151/99 H Pulse Oximetry 97 Oxygen Delivery Room Air 08/07/25 14:00 08/07/25 16:00 08/07/25 16:00 Temperature Pulse Rate 79 89 Respiratory Rate Blood Pressure Pulse Oximetry Oxygen Delivery Room Air 08/07/25 16:00 08/07/25 16:50 08/07/25 17:32 Temperature 36.9 C Pulse Rate 94 101 H Respiratory Rate 16 Blood Pressure 168/117 H 136/106 H Pulse Oximetry 95 Oxygen Delivery 08/07/25 18:00 08/07/25 20:00 08/07/25 20:00 Temperature 36.2 C L Pulse Rate 86 94 72 Respiratory Rate 16 16 Blood Pressure 164/116 H Pulse Oximetry 100 100 Oxygen Delivery Room Air 08/07/25 20:00 08/07/25 20:46 08/07/25 20:46 Temperature Pulse Rate 72 84 84 Respiratory Rate Blood Pressure Pulse Oximetry Oxygen Delivery 08/07/25 21:33 08/07/25 21:41 08/08/25 00:00 Temperature 36.5 C Pulse Rate 80 88 Respiratory Rate 16 Blood Pressure 149/112 H Pulse Oximetry 94 99 Oxygen Delivery Room Air 08/08/25 00:00 08/08/25 00:00 08/08/25 01:52 Temperature Pulse Rate 83 83 87 Respiratory Rate 16 Blood Pressure Pulse Oximetry 99 Oxygen Delivery Room Air 08/08/25 04:00 08/08/25 04:00 08/08/25 04:00 Temperature 36.3 C L Pulse Rate 85 85 103 H Respiratory Rate 16 18 Blood Pressure 138/96 H Pulse Oximetry 99 99 Oxygen Delivery Room Air 08/08/25 06:00 08/08/25 08:05 08/08/25 08:33 Temperature 36.7 C Pulse Rate 85 88 74 Respiratory Rate 18 Blood Pressure 142/90 H Pulse Oximetry 99 Oxygen Delivery Intake/Output Intake/Output: Intake & Output 08/05/25 08/06/25 08/07/25 08/08/25 23:59 23:59 23:59 23:59 Intake Total 125.2 1661.6 Output Total 500 1600 Balance -374.8 61.6 Meds/Results Medications: Active Medications Generic Name Dose Route Start Last Admin Trade Name Freq PRN Reason Stop Dose Admin Acetaminophen 650 mg 08/06/25 21:28 Acetaminophen 325 Mg Tablet PO Q4H PRN Mild Pain (1-3) or Fever Aspirin 81 mg 08/07/25 09:00 08/08/25 08:33 Aspirin 81 Mg Enteric Tablet PO 81 mg QAM JANIA Administration Carvedilol 12.5 mg 08/07/25 09:00 08/08/25 08:33 Carvedilol 12.5 Mg Tablet PO 12.5 mg Q12HR JANIA Administration Hydralazine HCl 20 mg 08/07/25 08:59 Hydralazine Hcl 20 Mg/Ml Vial IV PUSH Q4H PRN SBP more than 160 Labetalol HCl 20 mg 08/07/25 08:59 08/07/25 20:46 Labetalol Hcl Inj 100 Mg/20 Ml Vial IV PUSH 20 mg Q4H PRN Administration SBP > 160 and HR> 60 -1st choice Lisinopril 40 mg 08/07/25 09:00 08/08/25 08:33 Lisinopril 20 Mg Tablet PO 40 mg QAM JANIA Administration Morphine Sulfate 4 mg 08/06/25 21:28 Morphine Sulfate (*Crx) 4 Mg/Ml Inj IV PUSH Q2H PRN Pain Rated 7-10 Ondansetron HCl 4 mg 08/06/25 21:28 Ondansetron Inj 4 Mg/2 Ml Vial IV PUSH Q4H PRN Nausea Radiology Results: ITS Impressions Chest X-Ray 08/07/25 06:34 IMPRESSION: 1. Heart size enlarged. 2. Lungs clear. Chest/Abdomen/Pelvis CTA 08/07/25 06:40 IMPRESSION: 1. Chronic air trapping in basilar left lung lower lobe. 2. Cardiomegaly. 3. Severe atrophy of left kidney. Head CT 08/07/25 06:58 IMPRESSION: 1. No acute intracranial findings. Labs Labs: Laboratory Results - last 24 hr 08/07/25 08/07/25 08/07/25 12:22 15:01 21:55 WBC RBC Hgb Hct MCV MCH MCHC RDW Plt Count MPV APTT 47.4 H Sodium Potassium Chloride Carbon Dioxide Anion Gap BUN Creatinine Estim Creat Clear Calc Estimated GFR Glucose Calcium Magnesium Total Bilirubin AST ALT Alkaline Phosphatase Troponin I 48.700 H* 69.400 H* D Total Protein Albumin 08/08/25 06:17 WBC 17.8 H RBC 5.91 Hgb 18.1 H Hct 51.4 MCV 87.0 MCH 30.6 MCHC 35.2 RDW 12.3 Plt Count 274 MPV 9.0 APTT Sodium 134 L Potassium 3.8 Chloride 99 Carbon Dioxide 26 Anion Gap 9 BUN 18 Creatinine 1.08 Estim Creat Clear Calc 93 Estimated GFR > 60 Glucose 120 H Calcium 9.9 Magnesium 2.0 Total Bilirubin 2.6 H AST 424 H ALT 93 H Alkaline Phosphatase 102 Troponin I Total Protein 8.5 H Albumin 4.6
--- NOTE | 2025-08-08 10:03 | P.SEDATION_ITS ---
Moderate Sedation Note-Pt Data Patient Data Allergies Allergy/AdvReac Type Severity Reaction Status Date / Time No Known Drug Allergies Allergy Unknown Verified 08/06/25 23:25 Home Medications ?Medication ?Instructions ?Recorded ?Confirmed ?Type lisinopril 5 mg tablet 5 mg PO DAILY #14 tabs 09/0308/06/25 Rx Current Medications: Active Medications Acetaminophen (Acetaminophen 325 Mg Tablet) 650 mg PO Q4H PRN PRN Reason: Mild Pain (1-3) or Fever Aspirin (Aspirin 81 Mg Enteric Tablet) 81 mg PO [facility] Last Admin: 08/08/25 08:33 Dose: 81 mg Carvedilol (Carvedilol 12.5 Mg Tablet) 12.5 mg PO Q12HR [facility] Last Admin: 08/08/25 08:33 Dose: 12.5 mg Hydralazine HCl (Hydralazine Hcl 20 Mg/Ml Vial) 20 mg IV PUSH Q4H PRN PRN Reason: SBP more than 160 Labetalol HCl (Labetalol Hcl Inj 100 Mg/20 Ml Vial) 20 mg IV PUSH Q4H PRN PRN Reason: SBP > 160 and HR> 60 -1st choice Last Admin: 08/07/25 20:46 Dose: 20 mg Lisinopril (Lisinopril 20 Mg Tablet) 40 mg PO [facility] Last Admin: 08/08/25 08:33 Dose: 40 mg Morphine Sulfate (Morphine Sulfate (*Crx) 4 Mg/Ml Inj) 4 mg IV PUSH Q2H PRN PRN Reason: Pain Rated 7-10 Ondansetron HCl (Ondansetron Inj 4 Mg/2 Ml Vial) 4 mg IV PUSH Q4H PRN PRN Reason: Nausea Sedation/Anesthesia: No previous sedation/anesthesia problems (including family history). [facility] Past Medical History Medical History (Updated 08/07/25 @ 11:02 by Leonides Mccain MD) Atrophy of left kidney Essential hypertension Family History Family History (Updated 08/06/25 @ 23:29 by Skylar Brasher RN) Grandparent Hypertension Mother Hypertension Social History Social History Smoking status: Never smoker Second hand tobacco smoke exposure: No Alcohol intake: current Drinks per week: 30 Substance use: current Substance use type: marijuana and crack/cocaine Other substance usage details: cocaine rarely, weed every day Lack of Transportation: No Lack of Food: Never True Current Housing: I Have Housing Concerned About Future Housing: No Difficulty Paying Gas/Electric Bills: No Difficulty Paying for Meds: No Currently Unemployed: No Education: High School Diploma/GED Difficulty w/ Childcare or Family Care: No Spiritual care concerns: No Mod Sed Physical Exam Physical Exam Pre Procedural Exam: Normal: Lungs, Heart Size, Heart Rate and Heart Rhythm Hours since solid foods: 12 Hours since liquid intake: 12 Mallampati Classification: class III Internal Medicine - PN: Obj Da Vital Signs Vital Signs: Vital Signs - 24 hr 08/07/25 11:00 08/07/25 12:00 08/07/25 12:18 Temperature 36.8 C Pulse Rate 83 77 Respiratory Rate 22 H 19 Blood Pressure 148/82 H 151/99 H Pulse Oximetry 97 97 Oxygen Delivery Room Air 08/07/25 12:19 08/07/25 14:00 08/07/25 16:00 Temperature Pulse Rate 76 79 Respiratory Rate Blood Pressure Pulse Oximetry Oxygen Delivery Room Air 08/07/25 16:00 08/07/25 16:00 08/07/25 16:50 Temperature 36.9 C Pulse Rate 89 94 101 H Respiratory Rate 16 Blood Pressure 168/117 H Pulse Oximetry 95 Oxygen Delivery 08/07/25 17:32 08/07/25 18:00 08/07/25 20:00 Temperature 36.2 C L Pulse Rate 86 94 Respiratory Rate 16 Blood Pressure 136/106 H 164/116 H Pulse Oximetry 100 Oxygen Delivery 08/07/25 20:00 08/07/25 20:00 08/07/25 20:46 Temperature Pulse Rate 72 72 84 Respiratory Rate 16 Blood Pressure Pulse Oximetry 100 Oxygen Delivery Room Air 08/07/25 20:46 08/07/25 21:33 08/07/25 21:41 Temperature Pulse Rate 84 80 Respiratory Rate Blood Pressure Pulse Oximetry 94 Oxygen Delivery Room Air 08/08/25 00:00 08/08/25 00:00 08/08/25 00:00 Temperature 36.5 C Pulse Rate 88 83 83 Respiratory Rate 16 16 Blood Pressure 149/112 H Pulse Oximetry 99 99 Oxygen Delivery Room Air 08/08/25 01:52 08/08/25 04:00 08/08/25 04:00 Temperature Pulse Rate 87 85 85 Respiratory Rate 16 Blood Pressure Pulse Oximetry 99 Oxygen Delivery Room Air 08/08/25 04:00 08/08/25 06:00 08/08/25 08:05 Temperature 36.3 C L 36.7 C Pulse Rate 103 H 85 88 Respiratory Rate 18 18 Blood Pressure 138/96 H 142/90 H Pulse Oximetry 99 99 Oxygen Delivery 08/08/25 08:33 Temperature Pulse Rate 74 Respiratory Rate Blood Pressure Pulse Oximetry Oxygen Delivery Intake/Output Intake/Output: Intake & Output 08/05/25 08/06/25 08/07/25 08/08/25 23:59 23:59 23:59 23:59 Intake Total 125.2 1661.6 Output Total 500 1600 Balance -374.8 61.6 Meds/Results Medications: Active Medications Generic Name Dose Route Start Last Admin Trade Name Freq PRN Reason Stop Dose Admin Acetaminophen 650 mg 08/06/25 21:28 Acetaminophen 325 Mg Tablet PO Q4H PRN Mild Pain (1-3) or Fever Aspirin 81 mg 08/07/25 09:00 08/08/25 08:33 Aspirin 81 Mg Enteric Tablet PO 81 mg QAM JANIA Administration Carvedilol 12.5 mg 08/07/25 09:00 08/08/25 08:33 Carvedilol 12.5 Mg Tablet PO 12.5 mg Q12HR JANIA Administration Hydralazine HCl 20 mg 08/07/25 08:59 Hydralazine Hcl 20 Mg/Ml Vial IV PUSH Q4H PRN SBP more than 160 Labetalol HCl 20 mg 08/07/25 08:59 08/07/25 20:46 Labetalol Hcl Inj 100 Mg/20 Ml Vial IV PUSH 20 mg Q4H PRN Administration SBP > 160 and HR> 60 -1st choice Lisinopril 40 mg 08/07/25 09:00 08/08/25 08:33 Lisinopril 20 Mg Tablet PO 40 mg QAM JANIA Administration Morphine Sulfate 4 mg 08/06/25 21:28 Morphine Sulfate (*Crx) 4 Mg/Ml Inj IV PUSH Q2H PRN Pain Rated 7-10 Ondansetron HCl 4 mg 08/06/25 21:28 Ondansetron Inj 4 Mg/2 Ml Vial IV PUSH Q4H PRN Nausea Radiology Results: ITS Impressions Chest X-Ray 08/07/25 06:34 IMPRESSION: 1. Heart size enlarged. 2. Lungs clear. Chest/Abdomen/Pelvis CTA 08/07/25 06:40 IMPRESSION: 1. Chronic air trapping in basilar left lung lower lobe. 2. Cardiomegaly. 3. Severe atrophy of left kidney. Head CT 08/07/25 06:58 IMPRESSION: 1. No acute intracranial findings. Labs 08/08/25 06:17 08/08/25 06:17 Labs: Laboratory Results - last 24 hr 08/07/25 08/07/25 08/07/25 12:22 15:01 21:55 WBC RBC Hgb Hct MCV MCH MCHC RDW Plt Count MPV APTT 47.4 H Sodium Potassium Chloride Carbon Dioxide Anion Gap BUN Creatinine Estim Creat Clear Calc Estimated GFR Glucose Calcium Magnesium Total Bilirubin AST ALT Alkaline Phosphatase Troponin I 48.700 H* 69.400 H* D Total Protein Albumin 08/08/25 06:17 WBC 17.8 H RBC 5.91 Hgb 18.1 H Hct 51.4 MCV 87.0 MCH 30.6 MCHC 35.2 RDW 12.3 Plt Count 274 MPV 9.0 APTT Sodium 134 L Potassium 3.8 Chloride 99 Carbon Dioxide 26 Anion Gap 9 BUN 18 Creatinine 1.08 Estim Creat Clear Calc 93 Estimated GFR > 60 Glucose 120 H Calcium 9.9 Magnesium 2.0 Total Bilirubin 2.6 H AST 424 H ALT 93 H Alkaline Phosphatase 102 Troponin I Total Protein 8.5 H Albumin 4.6 ASA Classification/Sedation ASA Classification/Sedation ASA Class: III Emergent: No Risks: Risks, benefits and alternatives explained and patient/family accepted plan for sedation. Patient re-evaluated immediately prior to sedation.
--- NOTE | 2025-08-08 10:04 | WPDHPUPDATE1 ---
History and Physical Update Update Date/Time: 08/08/25 10:04 History and Physical has been reviewed, including an updated exam of the patient. There are NO changes in the patient's condition. Risks, benefits, and alternatives have been discussed and questions answered. Patient agrees to proceed with procedure.
--- NOTE | 2025-08-08 10:04 | WPDCARDPROC ---
Cardiac Cath Procedure Note Date of procedure:: 08/08/25 Performing physician:: Ngozi Michaels MD Indication:: CATHETERIZATION LABORATORY REPORT Procedure Date: Referring Physician: Anesthesia: Versed and Fentanyl were ordered and given in my presence at 11:25 a.m., procedure ended at 1:05 p.m.. Supervision of nurse monitored moderate sedation with Versed and Fentanyl was provided for 100 minutes. Medications administered: Fentanyl 100 mcg, Versed 1 mg Pre-op Diagnosis: NSTEMI Post-op Diagnosis: NSTEMI- type I secondary to 100% occluded proximal LCX s/p successful IVUS guided PCI with 3.5mmx 15mm [place] BRIAN post dilated with 5.0mm x8mm NC balloon to high pressures Nonobstructive CAD-40 to 50% stenosis in ostial LCX, 50% stenosis in mid LCX and the takeoff of OM1 and OM2 branches. 50% stenosis in OM2 branch. Obstructive CAD- two serial 90% stenosis in a small (2 mm or less) right posterolateral artery with SYDNIE 3 flow in the distal vessel Hypertension with SBP in the 150s Nonobstructive CAD-40 to 50% stenosis in ostial LCX, 50% stenosis in mid LCX and the takeoff of OM1 and OM2 branches. 50% stenosis in OM2 branch. Obstructive CAD- two serial 90% stenosis in a small (2 mm or less) right posterolateral artery with SYDNIE 3 flow in the distal vessel Hypertension with SBP in the 150s Atrophic left kidney since Procedure(s): IVUS guided right radial artery access Left heart catheterization with coronary angiography PCI to proximal LCX Access Site: Right radial artery Brief History and Clinical Indications: All risks, benefits and alternatives to left heart catheterization with or without percutaneous coronary intervention was discussed at length with the patient. Risk of complications including but not limited to bleeding, infection, arrhythmia, stroke, worsening kidney function, blood loss, groin hematoma, limb loss, emergency coronary artery bypass grafting, and even were discussed with the patient and all questions were answered. The patient understood and wished to proceed. Time out called, patient name, date of , medical record number, allergies, procedure performed, identify [employer], patient and staff member concurred with accurate data, procedure carried on. Findings: LEFT HEART CATHETERIZATION FINDINGS: 1. Left main: The left main coronary artery is widely patent without any significant obstructive disease. 2. Left anterior descending: The LAD and the diagonal branches have mild luminal irregularities without any significant obstructive angiographic disease. 3. Left circumflex: The ostial left circumflex artery has 40-50% stenosis. There is a 100% thrombotic occlusion of the proximal LCX with SYDNIE 0 flow beyond this lesion treated this is the culprit for patient's NSTEMI. 4. Right coronary artery: The RCA has mild luminal irregularities without any significant obstructive angiographic disease. The RCA is the dominant vessel. It bifurcates into the right posterolateral and right posterior descending artery. The RPLA is a small vessel about 2 mm or less in size with two serial 90% stenoses proximally. There is SYDNIE 3 flow beyond these stenoses. 5. Left ventricle: A. End-diastolic pressure 7 mmHg. B. LV gram deferred. C. There is a gradient of 3.17 across aortic valve on catheter pullback. 6. Opening AO pressure 122/93 mm Hg and closing AO pressure 127/95 mm Hg Description of Procedure: Informed consent signed and placed in the chart. Patient transferred to lab pack chemist room. Prepped and draped in usual sterile fashion. 2% lidocaine injected subcutaneously in right wrist area. 22-gauge venipuncture catheter used to access the right radial artery with the Seldinger technique. 6-FR slender sheath placed in right radial artery. Nitroglycerin 200mcg, and Heparin 5000U was given intraarterial through the sheath. J wire advanced under fluoroscopy 6 Israeli EBU 3.5 guide catheter engaged Left Main Coronary Artery. 5 Israeli JR4 diagnostic catheter engaged Right Coronary Artery Multiple orthogonal angiogram obtained and reviewed 5 Israeli JR4 diagnostic catheter crossed aortic valve to obtain LVEDP, LV angiogram deferred. Hemostasis was achieved by application of TR band. Procedure Description for PCI: Heparin was used for anticoagulation (ACT maintained above 250) Patient loaded with heparin at 70 units/kg. 6 Israeli EBU 3.5 guide catheter was used to intubate the left main 0.014 runthrough coronary wire was passed in to the distal LAD to stabilize the guide A 2nd 0.014 runthrough coronary wire was passed into the proximal LCX and through the lesion into the distal OM at which time some flow was established in the LCX making the territory of OM vessels visible Next, the 1st runthrough coronary wire was pulled back from distal LAD into the left main and advanced into a large 1st OM branch A [employer] IVUS catheter was advanced into OM1 and OM2 serially and pullback was performed to evaluate lesion characteristics and vessel size The lesion in the proximal LCX was pre-dilated with a 2.0 mm X 15 mm, 3.0 mm X 15 mm compliant balloons inflated to high ANGEL A 3.5 mm x 15 mm [employer] jaylen [place] BRIAN was successfully deployed into proximal LCX IVS was readvanced for stent optimization The stent was post-dilated with a 4.0 mm X 12 mm, 5.0 mm X 8 mm NC balloon inflated to high ANGEL Intracoronary NTG was administered Follow-up angiograms showed an excellent result Coronary wire and guide-catheter were removed Pre-procedure - SYDNIE 0 flow Post-procedure - SYDNIE 3 flow No angiographic complications identified. Assessment: NSTEMI- type I secondary to 100% occluded proximal LCX s/p successful IVUS guided PCI with 3.5mmx 15mm [place] BRIAN post dilated with 5.0mm x8mm NC balloon to high pressures Nonobstructive CAD-40 to 50% stenosis in ostial LCX, 50% stenosis in mid LCX and the takeoff of OM1 and OM2 branches. 50% stenosis in OM2 branch. Obstructive CAD- two serial 90% stenosis in a small (2 mm or less) right posterolateral artery with SYDNIE 3 flow in the distal vessel Hypertension with SBP in the 150s Atrophic left kidney since Post Operative Condition: Stable No significant blood loss Disposition: Floor Plan: The patient will be monitored in the recovery area. Ticagrelor 180 mg loaded in the lab pack chemist. DAPT for 1 year with aspirin 81 mg p.o. daily and ticagrelor 90 mg p.o. b.i.d. followed by ASA indefinitely. Continue aggressive medical therapy and risk factor modification. Cardiac rehab. IV fluids normal saline at 100 mL/hour for 1 L. Check renal function in a.m.. Ngozi Michaels MD, MS, FACC, [facility] Interventional Cardiology
--- NOTE | 2025-08-08 12:58 | PM.IMPN2 ---
Assessment and Plan Assessment and Plan (1) Hypertensive emergency: Code(s): I16.1 - Hypertensive emergency Status: Acute (2) Non-STEMI (non-ST elevated myocardial infarction): Code(s): I21.4 - Non-ST elevation (NSTEMI) myocardial infarction Status: Acute (3) Cocaine use: Code(s): F14.90 - Cocaine use, unspecified, uncomplicated Status: Acute (4) Cannabis abuse: Code(s): F12.10 - Cannabis abuse, uncomplicated Status: Acute (5) Agenesis of left kidney: Code(s): Q60.0 - Renal agenesis, unilateral Status: Acute Plan This is a 29-year-old male presents to the ED with chest pain and heaviness for the past 3-4 days with sudden onset severe headache that started several hours ago. Patient stated his pain is radiating up to his jaw from a chest and having intense headache. His blood pressure has been elevated as well. He does have history of hypertension but does not take any blood pressure medication regularly. No nausea vomiting. No fever chills no shortness of breath no or arm or leg weakness. No facial asymmetry. On ED evaluation he was found to have extremely elevated blood pressure add 205/128. EKG showed left ventricular hypertrophy with some ST depressions in the inferior leads. Laboratory studies showed a WBC of 12.9 hemoglobin 17 platelet count 274. Sodium 137 potassium 4 chloride 99 bicarbonate 30 BUN 9 creatinine 1.1 blood glucose 114. LFTs with total bilirubin of 1.2 AST 128 ALT 55 alkaline phosphatase 114. Lipase was elevated at 348. Troponin came back elevated at 3.92. CT head showed no acute intracranial findings. CT angiogram of the chest showed no PE or dissection. Cardiology was consulted for EKG changes and elevated troponin. Due to elevated blood pressure recommendation was to control blood pressure and took heparinized. A received IV labetalol in the ER however subsequently was placed on nicardipine drip.. Chest x-ray showed some cardiomegaly with no acute findings formal report pending. Patient is admitted to the ICU for further treatment. Since control of blood pressure is symptoms as significantly improved. Hypertensive emergency with elevated blood pressure 205/128 on presentation with non-STEMI started on nicardipine drip. 08/07/2025: He has has been started on oral medication with lisinopril and carvedilol. Off nicardipine drip. Continue to monitor blood pressure. Secondary causes of hypertension workup in process. Apnea link reviewed which was negative Non-STEMI with elevated troponin and ST changes in the EKG could be related to hypertensive emergency. Heparin drip started cardiology has been consulted from the ER. Echo with EF normal no significant valvular abnormalities. Troponin continues to trend up to 48 this a.m. aspirin 81 mg daily and carvedilol. Okay to stop heparin drip per Cardiology. Also associated cocaine abuse. Patient's troponin continued to incline. Plan for cardiac catheterization today per Cardiology. Add atorvastatin. Check lipid Hypertension uncontrolled and untreated prior to admission. Evaluate for secondary causes of hypertension. Check ApneaLink. Renal artery duplex cancelled as CTA was already performed which was negative for this Headache CT head is negative for any intracranial findings. Likely due to hypertension. Continue to monitor. MRI brain ordered Elevated liver enzymes CT with hepatomegaly and hepatic steatosis. Hepatitis profile negative. Continue to monitor slight incline in levels Urine screen positive for cocaine and cannabinoids. History of Cocaine abuse. Admits to using cocaine in the past last use a month ago. 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 Patient ambulating. Continue SCDs Code status full code Subjective Date/time seen: 08/08/25 12:58 Interval history: No overnight events. Blood pressure trend reviewed. Plan for heart catheterization today. Denies any chest pain or shortness of breath. Apnea link test reviewed. Review of Systems Review of Systems: All systems reviewed & are unremarkable except as noted in HPI and below Exam Narrative: GENERAL: Well-appearing not in acute distress HEAD: Normocephalic, atraumatic. EYES: [PERRLA and EOMI.] ENT: Nares clear, no rhinorrhea or epistaxis. Mucous membranes moist. NECK: Supple. CHEST: Clear to auscultation. No respiratory distress. HEART: Regular rate and rhythm ABDOMEN: Soft, nondistended, nontender, No rigidity or guarding EXTREMITIES: Normal range of motion. No edema. SKIN: Warm, dry, no rash. NEURO: No focal deficits. Alert and oriented x3. PSYCH: Normal mood and affect. Objective Data Vital Signs Vital Signs: Vital Signs - 24 hr 08/07/25 14:00 08/07/25 16:00 08/07/25 16:00 Temperature Pulse Rate 79 89 Respiratory Rate Blood Pressure Pulse Oximetry Oxygen Delivery Room Air 08/07/25 16:00 08/07/25 16:50 08/07/25 17:32 Temperature 98.4 F Pulse Rate 94 101 H Respiratory Rate 16 Blood Pressure 168/117 H 136/106 H Pulse Oximetry 95 Oxygen Delivery 08/07/25 18:00 08/07/25 20:00 08/07/25 20:00 Temperature 97.1 F L Pulse Rate 86 94 72 Respiratory Rate 16 16 Blood Pressure 164/116 H Pulse Oximetry 100 100 Oxygen Delivery Room Air 08/07/25 20:00 08/07/25 20:46 08/07/25 20:46 Temperature Pulse Rate 72 84 84 Respiratory Rate Blood Pressure Pulse Oximetry Oxygen Delivery 08/07/25 21:33 08/07/25 21:41 08/08/25 00:00 Temperature 97.7 F Pulse Rate 80 88 Respiratory Rate 16 Blood Pressure 149/112 H Pulse Oximetry 94 99 Oxygen Delivery Room Air 08/08/25 00:00 08/08/25 00:00 08/08/25 01:52 Temperature Pulse Rate 83 83 87 Respiratory Rate 16 Blood Pressure Pulse Oximetry 99 Oxygen Delivery Room Air 08/08/25 04:00 08/08/25 04:00 08/08/25 04:00 Temperature 97.3 F L Pulse Rate 85 85 103 H Respiratory Rate 16 18 Blood Pressure 138/96 H Pulse Oximetry 99 99 Oxygen Delivery Room Air 08/08/25 06:00 08/08/25 08:00 08/08/25 08:05 Temperature 98.1 F Pulse Rate 85 73 88 Respiratory Rate 18 Blood Pressure 142/90 H Pulse Oximetry 99 Oxygen Delivery 08/08/25 08:33 08/08/25 10:00 Temperature Pulse Rate 74 70 Respiratory Rate Blood Pressure Pulse Oximetry Oxygen Delivery Intake/Output Intake/Output: Intake & Output 08/05/25 08/06/25 08/07/25 08/08/25 23:59 23:59 23:59 23:59 Intake Total 125.2 1661.6 Output Total 500 1600 Balance -374.8 61.6 Meds/Results Medications: Active Medications Generic Name Dose Route Start Last Admin Trade Name Freq PRN Reason Stop Dose Admin Acetaminophen 650 mg 08/06/25 21:28 Acetaminophen 325 Mg Tablet PO Q4H PRN Mild Pain (1-3) or Fever Aspirin 81 mg 08/07/25 09:00 08/08/25 08:33 Aspirin 81 Mg Enteric Tablet PO 81 mg QAM JANIA Administration Carvedilol 12.5 mg 08/07/25 09:00 08/08/25 08:33 Carvedilol 12.5 Mg Tablet PO 12.5 mg Q12HR JANIA Administration Hydralazine HCl 20 mg 08/07/25 08:59 Hydralazine Hcl 20 Mg/Ml Vial IV PUSH Q4H PRN SBP more than 160 Labetalol HCl 20 mg 08/07/25 08:59 08/07/25 20:46 Labetalol Hcl Inj 100 Mg/20 Ml Vial IV PUSH 20 mg Q4H PRN Administration SBP > 160 and HR> 60 -1st choice Lisinopril 40 mg 08/07/25 09:00 08/08/25 08:33 Lisinopril 20 Mg Tablet PO 40 mg QAM JANIA Administration Morphine Sulfate 4 mg 08/06/25 21:28 Morphine Sulfate (*Crx) 4 Mg/Ml Inj IV PUSH Q2H PRN Pain Rated 7-10 Ondansetron HCl 4 mg 08/06/25 21:28 Ondansetron Inj 4 Mg/2 Ml Vial IV PUSH Q4H PRN Nausea Radiology Results: ITS Impressions Chest X-Ray 08/07/25 06:34 IMPRESSION: 1. Heart size enlarged. 2. Lungs clear. Chest/Abdomen/Pelvis CTA 08/07/25 06:40 IMPRESSION: 1. Chronic air trapping in basilar left lung lower lobe. 2. Cardiomegaly. 3. Severe atrophy of left kidney. Head CT 08/07/25 06:58 IMPRESSION: 1. No acute intracranial findings. Labs Labs: Laboratory Results - last 24 hr 08/07/25 08/07/25 08/08/25 15:01 21:55 06:17 WBC 17.8 H RBC 5.91 Hgb 18.1 H Hct 51.4 MCV 87.0 MCH 30.6 MCHC 35.2 RDW 12.3 Plt Count 274 MPV 9.0 Sodium 134 L Potassium 3.8 Chloride 99 Carbon Dioxide 26 Anion Gap 9 BUN 18 Creatinine 1.08 Estim Creat Clear Calc 93 Estimated GFR > 60 Glucose 120 H Calcium 9.9 Magnesium 2.0 Total Bilirubin 2.6 H AST 424 H ALT 93 H Alkaline Phosphatase 102 Troponin I 48.700 H* 69.400 H* D Total Protein 8.5 H Albumin 4.6
[2025-08-08 14:52] LABS: Cholesterol 259 mg/dL (0-200); HDL Direct 54 mg/dL; Triglycerides 129 mg/dL (<150)
[2025-08-08] MEDS: SODIUM CHLORIDE 0.9% IV 1,000 ML 100 ML IV CONT (16:00)
--- NOTE | 2025-08-08 17:19 | PC.NURSE ---
Pt is doing meds to beds program. Spoke with [facility], who is inquiring about pt's insurance status. States he will speak with care coordination tomorrow as it may be cheaper for pt to be on Plavix.
[2025-08-08] MEDS: ACETAMINOPHEN 325 MG TABLET 650 MG PO (18:27)
[2025-08-08] MEDS: ATORVASTATIN 40 MG TABLET 80 MG PO (20:33)
[2025-08-08] MEDS: TICAGRELOR 90 MG TABLET PO (20:33)
[2025-08-09] VITALS (10 sets, daily range): BP systolic 111–135; BP diastolic 70–85; PULSE 70–87; RESP 16–20; TEMP 36.4–37.3; O2SAT 98–100
[2025-08-09 04:43] LABS: Hematocrit 45.0 % (42.0-52.0); Hemoglobin 15.8 g/dL (14.0-18.0); Mean Corpuscular HGB Conc 35.1 g/dl (32-36); Mean Corpuscular Hemoglobin 30.5 pg (26-34); Mean Corpuscular Volume 86.9 fl (80-100); Platelet Count Result 235 k/mm3 (150-375); Red Blood Count 5.18 M/mm3 (4.6-6.20); White Blood Count 15.6 K/mm3 (4.5-10.0)
[2025-08-09 05:15] LABS: Alanine Aminotransferase 62 U/L (6-50); Albumin Level 3.9 g/dL (3.5-5.1); Alkaline Phosphatase 85 U/L (38-126); Anion Gap 6 mmol/L (4-12); Aspartate Amino Transferase 202 U/L (17-59); Bilirubin,Total 2.6 mg/dL (0.2-1.3); Blood Urea Nitrogen 20 mg/dL (9-20); Calcium 9.1 mg/dL (8.4-10.2); Carbon Dioxide 27 mmol/L (22-30); Chloride 103 mmol/L (98-107); Estimated CRCL calculation 102 ml/min; Estimated Glomerular Filt Rate > 60; Glucose 109 mg/dL (65-110); Magnesium 2.3 mg/dL (1.6-2.3); Potassium 3.6 mmol/L (3.4-5.0); Sodium 136 mmol/L (137-145); Total Protein 7.4 g/dL (6.3-8.2)
[2025-08-09] MEDS: ASPIRIN 81 MG ENTERIC TABLET PO (08:33)
[2025-08-09] MEDS: POTASSIUM CHLORIDE 20 MEQ ER TABLET 40 MEQ PO (08:33)
[2025-08-09] MEDS: TICAGRELOR 90 MG TABLET PO (08:34)
--- NOTE | 2025-08-09 10:06 | PM.PNCARD ---
Progress Note: A&P Assessment and Plan (1) Non-STEMI (non-ST elevated myocardial infarction): Code(s): I21.4 - Non-ST elevation (NSTEMI) myocardial infarction Status: Acute (2) Hypertensive emergency: Code(s): I16.1 - Hypertensive emergency Status: Acute (3) Atrophy of left kidney: Code(s): N26.1 - Atrophy of kidney (terminal) Status: Acute (4) Cannabis abuse: Code(s): F12.10 - Cannabis abuse, uncomplicated Status: Acute (5) Cocaine use: Code(s): F14.90 - Cocaine use, unspecified, uncomplicated Status: Acute Plan Assessment: NSTEMI- type I secondary to 100% occluded proximal LCX s/p successful IVUS guided PCI with 3.5mmx 15mm [place] BRIAN post dilated with 5.0mm x8mm NC balloon to high pressures TTE showed normal LVEF with inferior WMA CAD: Nonobstructive CAD-40 to 50% stenosis in ostial LCX, 50% stenosis in mid LCX and the takeoff of OM1 and OM2 branches. 50% stenosis in OM2 branch. Obstructive CAD- two serial 90% stenosis in a small (2 mm or less) right posterolateral artery with SYDNIE 3 flow in the distal vessel Hypertensive emergency-SBP greater than 200 mm Hg at presentation Polysubstance abuse-cocaine, cannabis Atrophic left kidney-since Plan: DAPT with asa and brillinta for one year followed by asa daily indefinitely LDL is 175. Started atorvastatin 80 mg daily. Repeat LDL in 1 month. Target <70 Continue Coreg 12.5 mg p.o. b.i.d. and lisinopril 40 mg daily Counseled about stopping cocaine and cannabis use Good risk factor control including BP, lipids, blood sugars Cardiac rehab at 1 month Time Spent With Patient Time: 65 minutes total time including counseling and coordination of care. Subjective Date/time seen: 08/09/25 10:06 Interval history: Reason for encounter: Hypertensive urgency, NSTEMI Relevant history: 29-year-old male with past medical history of atrophic left kidney, substance abuse presented with chief complaint of chest pain with radiation to the jaw and headache. He was noted to have hypertensive emergency with SBP greater than 200 mm Hg at presentation. He required nicardipine drip which has 80 dose. His blood pressure is better controlled now. Troponin is elevated and is continuing to rise currently at 69. EKG showed sinus rhythm with ST depressions in inferior leads, LVH. TTE showed normal LVEF but hypokinesis in inferior wall. Cardiology is consulted for NSTEMI. He had cardiac cath which showed 100% occluded proximal LCX s/p PCI. This is the culprit for patient's KS. He is doing well post procedure. Interval history: Patient is status post PCI to proximal LCX yesterday. He denies chest pain or shortness of breath this morning. Telemetry shows SR. Review of Systems Cardiovascular: Comments: As per HPI. Respiratory: Comments: As per HPI. Exam Narrative: General: Alert oriented x3, no acute distress Neck: Supple, no JVD Chest: Bilaterally clear to auscultation, no rales or rhonchi Cardiac: S1, S2 +, regular rate, regular rhythm, no murmurs or rubs Extremities: No pedal edema, no skin rash Neurologic: Alert and oriented x3, no focal neurological deficits Objective Data Vital Signs Vital Signs: Vital Signs - 24 hr 08/08/25 13:30 08/08/25 13:45 08/08/25 14:00 Temperature Pulse Rate 82 78 80 Respiratory Rate 20 18 20 Blood Pressure 138/106 H 145/123 H 151/121 H Pulse Oximetry 100 100 100 Oxygen Delivery Room Air Room Air Room Air 08/08/25 14:15 08/08/25 14:30 08/08/25 14:45 Temperature Pulse Rate 68 71 81 Respiratory Rate 17 18 20 Blood Pressure 137/103 H 137/104 H 145/102 H Pulse Oximetry 100 100 100 Oxygen Delivery Room Air Room Air Room Air 08/08/25 15:00 08/08/25 15:15 08/08/25 15:30 Temperature Pulse Rate 80 81 79 Respiratory Rate 19 19 20 Blood Pressure 137/105 H 143/99 H 131/109 H Pulse Oximetry 100 99 98 Oxygen Delivery Room Air Room Air Room Air 08/08/25 15:45 08/08/25 16:00 08/08/25 16:15 Temperature Pulse Rate 82 76 75 Respiratory Rate 20 20 20 Blood Pressure 135/105 H 143/99 H 138/99 H Pulse Oximetry 99 99 100 Oxygen Delivery Room Air Room Air Room Air 08/08/25 16:30 08/08/25 16:45 08/08/25 17:00 Temperature Pulse Rate 76 75 80 Respiratory Rate 21 H 20 21 H Blood Pressure 128/101 H 142/108 H 139/112 H Pulse Oximetry 100 100 100 Oxygen Delivery Room Air Room Air Room Air 08/08/25 17:10 08/08/25 17:30 08/08/25 18:00 Temperature Pulse Rate 73 80 76 Respiratory Rate 20 Blood Pressure 144/96 H Pulse Oximetry 99 Oxygen Delivery 08/08/25 18:22 08/08/25 18:27 08/08/25 19:00 Temperature 38.3 C H 38.3 C H 36.6 C Pulse Rate 86 83 Respiratory Rate 20 22 H Blood Pressure 129/80 134/90 Pulse Oximetry 100 99 Oxygen Delivery 08/08/25 19:27 08/08/25 20:00 08/08/25 20:00 Temperature 36.6 C 36.8 C Pulse Rate 85 85 Respiratory Rate 20 20 Blood Pressure 135/78 Pulse Oximetry 100 100 Oxygen Delivery Room Air 08/08/25 20:00 08/08/25 20:16 08/08/25 20:33 Temperature Pulse Rate 76 85 Respiratory Rate Blood Pressure Pulse Oximetry 99 Oxygen Delivery Room Air 08/08/25 22:00 08/09/25 00:00 08/09/25 00:00 Temperature 37.4 C 36.8 C Pulse Rate 48 L 70 85 Respiratory Rate 20 20 Blood Pressure 114/72 135/78 Pulse Oximetry 100 100 Oxygen Delivery 08/09/25 00:00 08/09/25 00:00 08/09/25 04:00 Temperature 37.3 C 36.8 C Pulse Rate 85 87 75 Respiratory Rate 20 18 18 Blood Pressure 118/74 112/70 Pulse Oximetry 100 99 98 Oxygen Delivery Room Air 08/09/25 04:00 08/09/25 04:00 08/09/25 05:59 Temperature Pulse Rate 77 80 Respiratory Rate Blood Pressure Pulse Oximetry Oxygen Delivery Room Air 08/09/25 07:55 08/09/25 08:00 08/09/25 08:33 Temperature 37.0 C Pulse Rate 87 84 Respiratory Rate 16 Blood Pressure 131/85 Pulse Oximetry 99 Oxygen Delivery Room Air Intake/Output Intake/Output: Intake & Output 08/06/25 08/07/25 08/08/25 08/09/25 23:59 23:59 23:59 23:59 Intake Total 125.2 1661.6 120 240 Output Total 500 1600 Balance -374.8 61.6 120 240 Meds/Results Medications: Active Medications Generic Name Dose Route Start Last Admin Trade Name Freq PRN Reason Stop Dose Admin Acetaminophen 650 mg 08/06/25 21:28 08/08/25 18:27 Acetaminophen 325 Mg Tablet PO 650 mg Q4H PRN Administration Mild Pain (1-3) or Fever Aspirin 81 mg 08/07/25 09:00 08/09/25 08:33 Aspirin 81 Mg Enteric Tablet PO 81 mg QAM JANIA Administration Atorvastatin Calcium 80 mg 08/08/25 21:00 08/08/25 20:33 Atorvastatin 40 Mg Tablet PO 80 mg HS JANIA Administration Carvedilol 12.5 mg 08/07/25 09:00 08/09/25 08:33 Carvedilol 12.5 Mg Tablet PO 12.5 mg Q12HR JANIA Administration Hydralazine HCl 20 mg 08/07/25 08:59 Hydralazine Hcl 20 Mg/Ml Vial IV PUSH Q4H PRN SBP more than 160 Labetalol HCl 20 mg 08/07/25 08:59 08/07/25 20:46 Labetalol Hcl Inj 100 Mg/20 Ml Vial IV PUSH 20 mg Q4H PRN Administration SBP > 160 and HR> 60 -1st choice Lisinopril 40 mg 08/07/25 09:00 08/09/25 08:34 Lisinopril 20 Mg Tablet PO 40 mg QAM JANIA Administration Morphine Sulfate 4 mg 08/06/25 21:28 Morphine Sulfate (*Crx) 4 Mg/Ml Inj IV PUSH Q2H PRN Pain Rated 7-10 Ondansetron HCl 4 mg 08/06/25 21:28 Ondansetron Inj 4 Mg/2 Ml Vial IV PUSH Q4H PRN Nausea Ticagrelor 90 mg 08/08/25 21:00 08/09/25 08:34 Ticagrelor 90 Mg Tablet PO 90 mg Q12HR JANIA Administration Radiology Results: ITS Impressions Chest X-Ray 08/07/25 06:34 IMPRESSION: 1. Heart size enlarged. 2. Lungs clear. Chest/Abdomen/Pelvis CTA 08/07/25 06:40 IMPRESSION: 1. Chronic air trapping in basilar left lung lower lobe. 2. Cardiomegaly. 3. Severe atrophy of left kidney. Head CT 08/07/25 06:58 IMPRESSION: 1. No acute intracranial findings. Labs Labs: Laboratory Results - last 24 hr 08/08/25 08/09/25 06:17 04:23 WBC 15.6 H RBC 5.18 Hgb 15.8 Hct 45.0 MCV 86.9 MCH 30.5 MCHC 35.1 RDW 12.2 Plt Count 235 MPV 9.1 Sodium 136 L Potassium 3.6 Chloride 103 Carbon Dioxide 27 Anion Gap 6 BUN 20 Creatinine 0.98 Estim Creat Clear Calc 102 Estimated GFR > 60 Glucose 109 Calcium 9.1 Magnesium 2.3 Total Bilirubin 2.6 H AST 202 H ALT 62 H Alkaline Phosphatase 85 Total Protein 7.4 Albumin 3.9 Triglycerides 129 Cholesterol 259 H LDL Cholesterol Direct 175 HDL Direct 54
[2025-08-09] MEDS: LORazepam (*CRX) 0.5 MG TABLET PO (11:07)
--- NOTE | 2025-08-09 12:00 | P.PNNP_ITS ---
Subjective Date/time seen: 08/09/25 12:50 Interval history: Follow-up for accelerated hypertension/hypertensive urgency. Status post cardiac catheterization yesterday with findings/interventions noted; significant improvement in blood pressure noted with current medication therapy; no apparent distress voiced when seen. Exam 2 Narrative: General: WD/WN male in NAD Heart: normal S1 and S2; no rub Lungs: clear to auscultation Abdomen: soft, nontender, nondistended, positive bowel sounds Extremities: no cyanosis or clubbing; no edema Skin: warm and dry Objective Data Vital Signs Vital Signs: Vital Signs Temp Pulse Resp BP Pulse Ox O2 Del Method 08/09/25 12:00 Room Air 08/09/25 11:55 98.4 F 83 16 117/83 100 08/09/25 10:00 81 08/09/25 08:33 84 08/09/25 08:00 85 08/09/25 08:00 Room Air 08/09/25 07:55 98.6 F 87 16 131/85 99 08/09/25 05:59 80 08/09/25 04:00 77 08/09/25 04:00 Room Air 08/09/25 04:00 98.2 F 75 18 112/70 98 08/09/25 00:00 99.2 F 87 18 118/74 99 08/09/25 00:00 85 20 100 Room Air 08/09/25 00:00 98.2 F 85 20 135/78 100 08/09/25 00:00 70 08/08/25 22:00 99.4 F 48 L 20 114/72 100 08/08/25 20:33 85 08/08/25 20:16 99 Room Air 08/08/25 20:00 76 08/08/25 20:00 85 20 100 Room Air 08/08/25 20:00 98.2 F 85 20 135/78 100 08/08/25 19:27 98 F 08/08/25 19:00 98 F 83 22 H 134/90 99 08/08/25 18:27 101.0 F H 08/08/25 18:22 101.0 F H 86 20 129/80 100 08/08/25 18:00 76 08/08/25 17:30 80 20 144/96 H 99 08/08/25 17:10 73 08/08/25 17:00 80 21 H 139/112 H 100 Room Air 08/08/25 16:45 75 20 142/108 H 100 Room Air 08/08/25 16:30 76 21 H 128/101 H 100 Room Air 08/08/25 16:15 75 20 138/99 H 100 Room Air 08/08/25 16:00 76 20 143/99 H 99 Room Air 08/08/25 15:45 82 20 135/105 H 99 Room Air 08/08/25 15:30 79 20 131/109 H 98 Room Air 08/08/25 15:15 81 19 143/99 H 99 Room Air 08/08/25 15:00 80 19 137/105 H 100 Room Air 08/08/25 14:45 81 20 145/102 H 100 Room Air 08/08/25 14:30 71 18 137/104 H 100 Room Air 08/08/25 14:15 68 17 137/103 H 100 Room Air 08/08/25 14:00 80 20 151/121 H 100 Room Air 08/08/25 13:45 78 18 145/123 H 100 Room Air 08/08/25 13:30 82 20 138/106 H 100 Room Air Intake/Output Intake/Output: Intake & Output 08/06/25 08/07/25 08/08/25 08/09/25 23:59 23:59 23:59 23:59 Intake Total 125.2 1661.6 120 240 Output Total 500 1600 Balance -374.8 61.6 120 240 Meds/Results Medications: Active Medications Generic Name Dose Route Start Last Admin Trade Name Blasq PRN Reason Stop Dose Admin Acetaminophen 650 mg 08/06/25 21:28 08/08/25 18:27 Acetaminophen 325 Mg Tablet PO 650 mg Q4H PRN Administration Mild Pain (1-3) or Fever Aspirin 81 mg 08/07/25 09:00 08/09/25 08:33 Aspirin 81 Mg Enteric Tablet PO 81 mg QAM JANIA Administration Atorvastatin Calcium 80 mg 08/08/25 21:00 08/08/25 20:33 Atorvastatin 40 Mg Tablet PO 80 mg HS JANIA Administration Carvedilol 12.5 mg 08/07/25 09:00 08/09/25 08:33 Carvedilol 12.5 Mg Tablet PO 12.5 mg Q12HR JANIA Administration Clopidogrel Bisulfate 75 mg 08/10/25 09:00 Clopidogrel Bisulfate 75 Mg Tablet PO QAM JANIA Hydralazine HCl 20 mg 08/07/25 08:59 Hydralazine Hcl 20 Mg/Ml Vial IV PUSH Q4H PRN SBP more than 160 Labetalol HCl 20 mg 08/07/25 08:59 08/07/25 20:46 Labetalol Hcl Inj 100 Mg/20 Ml Vial IV PUSH 20 mg Q4H PRN Administration SBP > 160 and HR> 60 -1st choice Lisinopril 40 mg 08/07/25 09:00 08/09/25 08:34 Lisinopril 20 Mg Tablet PO 40 mg QAM JANIA Administration Morphine Sulfate 4 mg 08/06/25 21:28 Morphine Sulfate (*Crx) 4 Mg/Ml Inj IV PUSH Q2H PRN Pain Rated 7-10 Ondansetron HCl 4 mg 08/06/25 21:28 Ondansetron Inj 4 Mg/2 Ml Vial IV PUSH Q4H PRN Nausea Radiology Results: ITS Impressions Chest X-Ray 08/07/25 06:34 IMPRESSION: 1. Heart size enlarged. 2. Lungs clear. Chest/Abdomen/Pelvis CTA 08/07/25 06:40 IMPRESSION: 1. Chronic air trapping in basilar left lung lower lobe. 2. Cardiomegaly. 3. Severe atrophy of left kidney. Head CT 08/07/25 06:58 IMPRESSION: 1. No acute intracranial findings. Brain MRI 08/09/25 12:13 IMPRESSION: Scattered small subcentimeter T2 weighted hyperintense white matter foci potentially representing demyelinating process. No associated restricted diffusion or abnormal enhancement. Labs Labs: Laboratory Tests 08/09/25 04:23 08/09/25 04:23 Calcium 9.1 Magnesium 2.3 Total Bilirubin 2.6 H AST 202 H ALT 62 H Alkaline Phosphatase 85 Total Protein 7.4 Albumin 3.9
[2025-08-09] MEDS: CLOPIDOGREL BISULFATE 300 MG TABLET PO (12:37)
--- NOTE | 2025-08-09 14:54 | PM.DS ---
DS: Admitting Diagnosis Discharge Date 08/09/2025 Admitting Diagnosis Chest pain DS: Discharge Diagnosis Discharge Diagnosis (1) Hypertensive emergency: Code(s): I16.1 - Hypertensive emergency Status: Acute (2) Non-STEMI (non-ST elevated myocardial infarction): Code(s): I21.4 - Non-ST elevation (NSTEMI) myocardial infarction Status: Acute (3) Cocaine use: Code(s): F14.90 - Cocaine use, unspecified, uncomplicated Status: Acute (4) Cannabis abuse: Code(s): F12.10 - Cannabis abuse, uncomplicated Status: Acute (5) Agenesis of left kidney: Code(s): Q60.0 - Renal agenesis, unilateral Status: Acute DS: Summary Hospital Course Hospital Course: This is a 29-year-old male presents to the ED with chest pain and heaviness for the past 3-4 days with sudden onset severe headache that started several hours ago. Patient stated his pain is radiating up to his jaw from a chest and having intense headache. His blood pressure has been elevated as well. He does have history of hypertension but does not take any blood pressure medication regularly. No nausea vomiting. No fever chills no shortness of breath no or arm or leg weakness. No facial asymmetry. On ED evaluation he was found to have extremely elevated blood pressure add 205/128. EKG showed left ventricular hypertrophy with some ST depressions in the inferior leads. Laboratory studies showed a WBC of 12.9 hemoglobin 17 platelet count 274. Sodium 137 potassium 4 chloride 99 bicarbonate 30 BUN 9 creatinine 1.1 blood glucose 114. LFTs with total bilirubin of 1.2 AST 128 ALT 55 alkaline phosphatase 114. Lipase was elevated at 348. Troponin came back elevated at 3.92. CT head showed no acute intracranial findings. CT angiogram of the chest showed no PE or dissection. Cardiology was consulted for EKG changes and elevated troponin. Due to elevated blood pressure recommendation was to control blood pressure and took heparinized. A received IV labetalol in the ER however subsequently was placed on nicardipine drip.. Chest x-ray showed some cardiomegaly with no acute findings formal report pending. Patient is admitted to the ICU for further treatment. Since control of blood pressure is symptoms as significantly improved. Hypertensive emergency with elevated blood pressure 205/128 on presentation with non-STEMI started on nicardipine drip. 08/07/2025: He has has been started on oral medication with lisinopril and carvedilol. Off nicardipine drip. Continue to monitor blood pressure. Secondary causes of hypertension workup in process. Apnea link reviewed which was negative Non-STEMI with elevated troponin and ST changes in the EKG could be related to hypertensive emergency. Heparin drip started cardiology has been consulted from the ER. Echo with EF normal no significant valvular abnormalities. Troponin continues to trend up to 48 this a.m. aspirin 81 mg daily and carvedilol. Okay to stop heparin drip per Cardiology. Also associated cocaine abuse. Patient's troponin continued to incline. Plan for cardiac catheterization today per Cardiology. And 8 atorvastatin. Lipid profile with LDL 175. Status post cardiac catheterization 08/08/2025: NSTEMI- type I secondary to 100% occluded proximal LCX s/p successful IVUS guided PCI with 3.5mmx 15mm [employer] [employer] BRIAN post dilated with 5.0mm x8mm NC balloon to high pressures Nonobstructive CAD-40 to 50% stenosis in ostial LCX, 50% stenosis in mid LCX and the takeoff of OM1 and OM2 branches. 50% stenosis in OM2 branch. Obstructive CAD- two serial 90% stenosis in a small (2 mm or less) right posterolateral artery with SYDNIE 3 flow in the distal vessel Hypertension with SBP in the 150s Hypertension uncontrolled and untreated prior to admission. Evaluate for secondary causes of hypertension. Apnea link negative for underlying sleep apnea. Renal artery duplex cancelled as CTA was already performed which was negative for this. Well controlled on current medication. Will continue same Headache CT head is negative for any intracranial findings. Likely due to hypertension. Continue to monitor. MRI brain ordered [facility] came back and reveiwed. neurology consulted with regards to the findings. fu with neuro as op baiss. Elevated liver enzymes CT with hepatomegaly and hepatic steatosis. Hepatitis profile negative. Continue to monitor slight incline in levels which has been stable and down trending now Urine screen positive for cocaine and cannabinoids. History of Cocaine abuse. Admits to using cocaine in the past last use a month ago. 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 Patient ambulating. Continue SCDs Code status full code Time Spent with Patient Time attestation: Total time spent providing and/or coordinating discharge services: 40 minutes Exam Narrative: GENERAL: Well-appearing not in acute distress HEAD: Normocephalic, atraumatic. EYES: [PERRLA and EOMI.] ENT: Nares clear, no rhinorrhea or epistaxis. Mucous membranes moist. NECK: Supple. CHEST: Clear to auscultation. No respiratory distress. HEART: Regular rate and rhythm ABDOMEN: Soft, nondistended, nontender, No rigidity or guarding EXTREMITIES: Normal range of motion. No edema. SKIN: Warm, dry, no rash. NEURO: No focal deficits. Alert and oriented x3. PSYCH: Normal mood and affect. DS: Data Data Completed and Pending Completed studies during hospitalization: Exam Type: CA echo dop color flow w con Complete two-dimensional, color flow and Doppler transthoracic echocardiogram is performed with contrast to opacify the left ventricle and to improve the deliniation of the left ventricle endocardial borders. Staff Referring Physician: Leonides Mccain MD After School Teacher: Halle Teran Attending Provider: Glenn Moreno Contrast/Agitated Saline Contrast/Ag. Saline: Definity Amount: 2.00 ml Existing IV Access: Yes Summary 1. There is normal biventricular size and systolic function; however cannot rule out inferior wall motion artifact. 2. There are no significant valvular abnormalities. Left Ventricle The left ventricle is normal in size and systolic function. There is mild concentric left ventricular hypertrophy. The left ventricular ejection fraction is visually estimated to be 60-65%. Right Ventricle The right ventricle is normal in size and systolic function. Left Atria The left atrium is normal size. Right Atria The right atrium is normal size. Atrial Septum The atrial septum is not well visualized. Aortic Valve There is no aortic stenosis. There is no aortic regurgitation. Pulmonic Valve The pulmonic valve is not well visualized. Mitral Valve The mitral valve is normal. There is no mitral regurgitation. Tricuspid Valve The tricuspid valve is grossly normal. Pericardium/Pleural Pericardium is normal in appearance with no evidence for significant pericardial effusion. Inferior Vena Cava Normal inferior vena cava with >50% collapse upon inspiration consistent with normal right atrial pressure, 3 mmHg. Aorta The visualized portions of the ascending aorta measures 3.4 cm diameter. Labs on day of discharge: Labs from last 24 hours 08/09/25 08/08/25 04:23 06:17 WBC 15.6 H RBC 5.18 Hgb 15.8 Hct 45.0 MCV 86.9 MCH 30.5 MCHC 35.1 RDW 12.2 Plt Count 235 MPV 9.1 Sodium 136 L Potassium 3.6 Chloride 103 Carbon Dioxide 27 Anion Gap 6 BUN 20 Creatinine 0.98 Estim Creat Clear Calc 102 Estimated GFR > 60 Glucose 109 Calcium 9.1 Magnesium 2.3 Total Bilirubin 2.6 H AST 202 H ALT 62 H Alkaline Phosphatase 85 Total Protein 7.4 Albumin 3.9 Triglycerides 129 Cholesterol 259 H LDL Cholesterol Direct 175 HDL Direct 54 Procedures/Treatments: Cardiac Cath Procedure Note Date of procedure:: 08/08/25 Performing physician:: Ngozi Michaels MD Indication:: CATHETERIZATION LABORATORY REPORT Procedure Date: Referring Physician: Anesthesia: Versed and Fentanyl were ordered and given in my presence at 11:25 a.m., procedure ended at 1:05 p.m.. Supervision of nurse monitored moderate sedation with Versed and Fentanyl was provided for 100 minutes. Medications administered: Fentanyl 100 mcg, Versed 1 mg Pre-op Diagnosis: NSTEMI Post-op Diagnosis: NSTEMI- type I secondary to 100% occluded proximal LCX s/p successful IVUS guided PCI with 3.5mmx 15mm [employer] BRIAN post dilated with 5.0mm x8mm NC balloon to high pressures Nonobstructive CAD-40 to 50% stenosis in ostial LCX, 50% stenosis in mid LCX and the takeoff of OM1 and OM2 branches. 50% stenosis in OM2 branch. Obstructive CAD- two serial 90% stenosis in a small (2 mm or less) right posterolateral artery with SYDNIE 3 flow in the distal vessel Hypertension with SBP in the 150s Nonobstructive CAD-40 to 50% stenosis in ostial LCX, 50% stenosis in mid LCX and the takeoff of OM1 and OM2 branches. 50% stenosis in OM2 branch. Obstructive CAD- two serial 90% stenosis in a small (2 mm or less) right posterolateral artery with SYDNIE 3 flow in the distal vessel Hypertension with SBP in the 150s Atrophic left kidney since Procedure(s): IVUS guided right radial artery access Left heart catheterization with coronary angiography PCI to proximal LCX Access Site: Right radial artery Brief History and Clinical Indications: All risks, benefits and alternatives to left heart catheterization with or without percutaneous coronary intervention was discussed at length with the patient. Risk of complications including but not limited to bleeding, infection, arrhythmia, stroke, worsening kidney function, blood loss, groin hematoma, limb loss, emergency coronary artery bypass grafting, and even were discussed with the patient and all questions were answered. The patient understood and wished to proceed. Time out called, patient name, date of , medical record number, allergies, procedure performed, identify Guest Service Agent, patient and staff member concurred with accurate data, procedure carried on. Findings: LEFT HEART CATHETERIZATION FINDINGS: 1. Left main: The left main coronary artery is widely patent without any significant obstructive disease. 2. Left anterior descending: The LAD and the diagonal branches have mild luminal irregularities without any significant obstructive angiographic disease. 3. Left circumflex: The ostial left circumflex artery has 40-50% stenosis. There is a 100% thrombotic occlusion of the proximal LCX with SYDNIE 0 flow beyond this lesion treated this is the culprit for patient's NSTEMI. 4. Right coronary artery: The RCA has mild luminal irregularities without any significant obstructive angiographic disease. The RCA is the dominant vessel. It bifurcates into the right posterolateral and right posterior descending artery. The RPLA is a small vessel about 2 mm or less in size with two serial 90% stenoses proximally. There is SYDNIE 3 flow beyond these stenoses. 5. Left ventricle: A. End-diastolic pressure 7 mmHg. B. LV gram deferred. C. There is a gradient of 3.17 across aortic valve on catheter pullback. 6. Opening AO pressure 122/93 mm Hg and closing AO pressure 127/95 mm Hg Description of Procedure: Informed consent signed and placed in the chart. Patient transferred to cardiac cath technologist room. Prepped and draped in usual sterile fashion. 2% lidocaine injected subcutaneously in right wrist area. 22-gauge venipuncture catheter used to access the right radial artery with the Seldinger technique. 6-FR slender sheath placed in right radial artery. Nitroglycerin 200mcg, and Heparin 5000U was given intraarterial through the sheath. J wire advanced under fluoroscopy 6 [place] EBU 3.5 guide catheter engaged Left Main Coronary Artery. 5 [place] JR4 diagnostic catheter engaged Right Coronary Artery Multiple orthogonal angiogram obtained and reviewed 5 [place] JR4 diagnostic catheter crossed aortic valve to obtain LVEDP, LV angiogram deferred. Hemostasis was achieved by application of TR band. Procedure Description for PCI: Heparin was used for anticoagulation (ACT maintained above 250) Patient loaded with heparin at 70 units/kg. 6 [place] EBU 3.5 guide catheter was used to intubate the left main 0.014 runthrough coronary wire was passed in to the distal LAD to stabilize the guide A 2nd 0.014 runthrough coronary wire was passed into the proximal LCX and through the lesion into the distal OM at which time some flow was established in the LCX making the territory of OM vessels visible Next, the 1st runthrough coronary wire was pulled back from distal LAD into the left main and advanced into a large 1st OM branch A [employer] [place] IVUS catheter was advanced into OM1 and OM2 serially and pullback was performed to evaluate lesion characteristics and vessel size The lesion in the proximal LCX was pre-dilated with a 2.0 mm X 15 mm, 3.0 mm X 15 mm compliant balloons inflated to high ANGEL A 3.5 mm x 15 mm [employer] BRIAN was successfully deployed into proximal LCX IVS was readvanced for stent optimization The stent was post-dilated with a 4.0 mm X 12 mm, 5.0 mm X 8 mm NC balloon inflated to high ANGEL Intracoronary NTG was administered Follow-up angiograms showed an excellent result Coronary wire and guide-catheter were removed Pre-procedure - SYDNIE 0 flow Post-procedure - SYDNIE 3 flow No angiographic complications identified. Assessment: NSTEMI- type I secondary to 100% occluded proximal LCX s/p successful IVUS guided PCI with 3.5mmx 15mm [place] [employer] BRIAN post dilated with 5.0mm x8mm NC balloon to high pressures Nonobstructive CAD-40 to 50% stenosis in ostial LCX, 50% stenosis in mid LCX and the takeoff of OM1 and OM2 branches. 50% stenosis in OM2 branch. Obstructive CAD- two serial 90% stenosis in a small (2 mm or less) right posterolateral artery with SYDNIE 3 flow in the distal vessel Hypertension with SBP in the 150s Atrophic left kidney since Post Operative Condition: Stable No significant blood loss Disposition: Floor Plan: The patient will be monitored in the recovery area. Ticagrelor 180 mg loaded in the cardiac cath technologist. DAPT for 1 year with aspirin 81 mg p.o. daily and ticagrelor 90 mg p.o. b.i.d. followed by [facility] indefinitely. Continue aggressive medical therapy and risk factor modification. Cardiac rehab. IV fluids normal saline at 100 mL/hour for 1 L. Check renal function in a.m.. Ngozi Michaels MD, MS, [facility], [facility] Interventional Cardiology Imaging Radiologist's impression: ITS Impressions Chest X-Ray 08/07/25 06:34 IMPRESSION: 1. Heart size enlarged. 2. Lungs clear. Chest/Abdomen/Pelvis CTA 08/07/25 06:40 IMPRESSION: 1. Chronic air trapping in basilar left lung lower lobe. 2. Cardiomegaly. 3. Severe atrophy of left kidney. Head CT 08/07/25 06:58 IMPRESSION: 1. No acute intracranial findings. ITS Impressions Chest X-Ray 08/07/25 06:34 IMPRESSION: 1. Heart size enlarged. 2. Lungs clear. Chest/Abdomen/Pelvis CTA 08/07/25 06:40 IMPRESSION: 1. Chronic air trapping in basilar left lung lower lobe. 2. Cardiomegaly. 3. Severe atrophy of left kidney. Head CT 08/07/25 06:58 IMPRESSION: 1. No acute intracranial findings. Brain MRI 08/09/25 12:13 IMPRESSION: Scattered small subcentimeter T2 weighted hyperintense white matter foci potentially representing demyelinating process. No associated restricted diffusion or abnormal enhancement. Discharge Plan Discharge Attending physician on discharge: Glenn Moreno Consulting providers: Markus Irvin; Ngozi Reynoso; Leonides Mccain; Deirdre Klein; Dave Forrester Discharging Clinician: Glenn Moreno Anticipated Discharge Date/Time: 08/09/25 08:40 Patient Disposition: Home Activity: as tolerated Diet: heart healthy Discharge Instructions: [facility] [address] [place], [place] [id number] DISCHARGE INSTRUCTIONS - POST RADIAL CATH Activity 1. No driving for 24 hours. 2. No lifting more than 5 lb with affected arm for 1 week. 3. May shower ( tomorrow) but no excessive soaking of affected hand/wrist (such as washing dishes), swimming pool or hot tub for 5 days. Wound Care 1. May remove arm board in the morning. 2. May remove gauze dressing in the morning and put Band-Aid over affected radial site. Keep site covered for 3 days. 3. Observe for redness, drainage, swelling or bleeding. Medications DO NOT STOP YOUR MEDICATIONS ONLY YOUR THIRD SHIFT LIEUTENANT CAN STOP THE FOLLOWING MEDICATIONS - PLEASE CALL THE OFFICE WITH QUESTIONS. *Aspirin *Ticagrelor (Brilinta) *Atorvastatin *Lisinopril or ARB *Metoprolol tartrate or succinate *Clopidogrel (Plavix) *Prasugrel (Effient) Important Reminders 1. Keep your stent card in your wallet at all times 2. Follow a heart healthy diet paying extra attention to cholesterol and fats. 3. Stay hydrated. 4. If you have chest pain unrelieved by rest or nitroglycerin (if prescribed) call 911 immediately. 5. If you miss one dose of Brilinta (if prescribed) take a tablet at the next time due. If you miss 2 doses take a tablet when you remember and resume at the next time due. *For any other questions please call the office at [phone]. Office hours are 8AM 4:30PM Thursday through Thursday. Patient Instructions: Antibiotic Form Patient Language: Ethiopian Stand Alone Forms: General Discharge Information, Work/School Release IP Follow-up/Referrals: Ngozi Reynoso MD [Physician, Cardiology] - 2 Weeks Dave Forrester MD [Physician, Neurology] - 6 Weeks PHYSICIAN,BOILER HOUSE INSPECTOR [Primary Care Provider, Internal Medicine] - 1 Week Discharge Medications: New clopidogrel [Plavix] 75 mg tablet 75 mg PO DAILY Qty: 90 2RF aspirin 81 mg Tablet,Delayed Release (Dr/Ec) 81 mg PO QAM Qty: 30 0RF lisinopril 20 mg Tablet 40 mg PO QAM Qty: 30 0RF ticagrelor [Brilinta] 90 mg Tablet 90 mg PO Q12HR 90 Days Qty: 180 3RF carvedilol [Coreg] 12.5 mg Tablet 12.5 mg PO Q12HR Qty: 60 0RF atorvastatin 40 mg Tablet 80 mg PO HS Qty: 60 0RF Discontinued lisinopril 5 mg tablet 5 mg PO DAILY Qty: 14 0RF Date of admission: 08/07/25 09:40 Primary Care Provider: PHYSICIAN,BOILER HOUSE INSPECTOR Admitting Provider: Glenn Moreno Attending physician on admission: Glenn Moreno Condition: Improved
--- NOTE | 2025-08-09 15:35 | WPDNEURCNPN ---
Assessment and Plan Assessment and plan (1) Hypertensive emergency: Code(s): I16.1 - Hypertensive emergency Status: Acute Plan 1. Hypertensive small-vessel disease involving the brain on the basis of the long-term severe hypertension. 2. Will benefit from the follow-up with the family physician, camera repairer and also withneurologist at least once in 6 months. Advise accordingly if any further questions arise please do not hesitate to contact me thank you Consult date: 08/09/25 HPI: Kei Keller is a 29 year old maleAdmitted to the hospital through the emergency room with the complaints of chest pain of several days duration along with the severe headaches of several hours duration as per the ER evaluation note pain was radiating to his jaw, localized to his chest, and he was experiencing intense headache at that time his blood pressure was elevated. Patient had been to the ER for the increase in the blood pressure previously and was advised to follow with the primary care physician but he did not follow through at the time of this evaluation he was not doing any exertional activities particularly when the headache started. He did not try any medication to control the headaches. He did not have any associated generalized symptomatology such as nausea vomiting of feet also he gave no history of associated weakness or numbness of 1 side or other side of his body. He was not allergic to any medication at the time of this admission. He is a never smoker, but currently drinks 30 drinks per week, with substance use as well, on initial exam in the emergency room he was ill-appearing tired and weak but had no focal neurological deficit. His vital signs were abnormal with blood pressure 205/4 128 subsequently 163/113, CBC was normal, BMP was normal, and the mast scan was normal except the urine was positive for the cannabinoids. Subsequent evaluation revealed abnormal EKG negative CT angiogram of the chest for pulmonary emboli or dissection, cardiologists were consulted, he received IV labetalol and nicardipine, and his chest x-ray documented cardiomegaly as well, his EKGs were abnormal, echocardiogram documented normal biventricular size and systolic function but the possibility of inferior wall infarction could not be ruled out there was no significant valvular abnormalities. Patient was subsequently transferred to the critical care because of an episode of slurred speech considering the possibility of TIA versus hypertensive encephalopathy he was taken off the nicardipine drip and transition to labetalol and hydralazine his drug screen was positive for cocaine though he denied the use of cocaine atrophy of the kidney was noted at that time his father reported that he was bone with left kidney so ultrasound of the renal artery was ordered. Further documented that he has only 1 functional kidney and also he was noncompliant with the antihypertensive medications left kidney was atrophied. As per the Cardiology consultation he has likely demand ischemia secondary to hypertensive emergency as well as cocaine abuse heparin drip was stopped started on aspirin and carvedilol and blood pressure was titrated according along with the addition of carvedilol 12.5mg b.i.d. underwent cardiac catheterization on August 08, 2025 which documented 40 to 50% stenosis of the left circumflex and 100% of the proximal LCX. RI was obtained because the history of the headache which documented a small subcentimeter T2 weighted hyperintense white matter foci raising the possibility of demyelinating process. Neurologic consultation has been obtained for that particular reason at this stage she has diagnosis of 1. Agenesis of the left kidney, cannabis abuse, cocaine use, non STEMI myocardial infarction and hypertensive emergency. Review of Systems Review of Systems: All systems reviewed & are unremarkable except as noted in HPI and below [facility] Past Medical History Medical History (Updated 08/07/25 @ 11:02 by Leonides Mccain MD) Atrophy of left kidney Essential hypertension Family History Family History (Updated 08/06/25 @ 23:29 by Skylar Brasher RN) Grandparent Hypertension Mother Hypertension Social History Social History Smoking status: Never smoker Second hand tobacco smoke exposure: No Alcohol intake: current Drinks per week: 30 Substance use: current Substance use type: marijuana and crack/cocaine Other substance usage details: cocaine rarely, weed every day Lack of Transportation: No Lack of Food: Never True Current Housing: I Have Housing Concerned About Future Housing: No Difficulty Paying Gas/Electric Bills: No Difficulty Paying for Meds: No Currently Unemployed: No Education: High School Diploma/GED Difficulty w/ Childcare or Family Care: No Spiritual care concerns: No Meds Home Medications and Allergies Home Medications ?Medication ?Instructions ?Recorded ?Confirmed ?Type lisinopril 5 mg tablet 5 mg PO DAILY #14 tabs 09/03/20 08/06/25 Rx clopidogrel 75 mg tablet (Plavix) 75 mg PO DAILY #90 tabs 08/09/25 Rx Allergies Allergy/AdvReac Type Severity Reaction Status Date / Time No Known Drug Allergies Allergy Unknown Verified 08/06/25 23:25 Vital Signs Vital Signs - 24 hr 08/08/25 15:45 08/08/25 16:00 08/08/25 16:15 Temperature Pulse Rate 82 76 75 Respiratory Rate 20 20 20 Blood Pressure 135/105 H 143/99 H 138/99 H Pulse Oximetry 99 99 100 Oxygen Delivery Room Air Room Air Room Air 08/08/25 16:30 08/08/25 16:45 08/08/25 17:00 Temperature Pulse Rate 76 75 80 Respiratory Rate 21 H 20 21 H Blood Pressure 128/101 H 142/108 H 139/112 H Pulse Oximetry 100 100 100 Oxygen Delivery Room Air Room Air Room Air 08/08/25 17:10 08/08/25 17:30 08/08/25 18:00 Temperature Pulse Rate 73 80 76 Respiratory Rate 20 Blood Pressure 144/96 H Pulse Oximetry 99 Oxygen Delivery 08/08/25 18:22 08/08/25 18:27 08/08/25 19:00 Temperature 38.3 C H 38.3 C H 36.6 C Pulse Rate 86 83 Respiratory Rate 20 22 H Blood Pressure 129/80 134/90 Pulse Oximetry 100 99 Oxygen Delivery 08/08/25 19:27 08/08/25 20:00 08/08/25 20:00 Temperature 36.6 C 36.8 C Pulse Rate 85 85 Respiratory Rate 20 20 Blood Pressure 135/78 Pulse Oximetry 100 100 Oxygen Delivery Room Air 08/08/25 20:00 08/08/25 20:16 08/08/25 20:33 Temperature Pulse Rate 76 85 Respiratory Rate Blood Pressure Pulse Oximetry 99 Oxygen Delivery Room Air 08/08/25 22:00 08/09/25 00:00 08/09/25 00:00 Temperature 37.4 C 36.8 C Pulse Rate 48 L 70 85 Respiratory Rate 20 20 Blood Pressure 114/72 135/78 Pulse Oximetry 100 100 Oxygen Delivery 08/09/25 00:00 08/09/25 00:00 08/09/25 04:00 Temperature 37.3 C 36.8 C Pulse Rate 85 87 75 Respiratory Rate 20 18 18 Blood Pressure 118/74 112/70 Pulse Oximetry 100 99 98 Oxygen Delivery Room Air 08/09/25 04:00 08/09/25 04:00 08/09/25 05:59 Temperature Pulse Rate 77 80 Respiratory Rate Blood Pressure Pulse Oximetry Oxygen Delivery Room Air 08/09/25 07:55 08/09/25 08:00 08/09/25 08:00 Temperature 37.0 C Pulse Rate 87 85 Respiratory Rate 16 Blood Pressure 131/85 Pulse Oximetry 99 Oxygen Delivery Room Air 08/09/25 08:33 08/09/25 10:00 08/09/25 11:55 Temperature 36.9 C Pulse Rate 84 81 83 Respiratory Rate 16 Blood Pressure 117/83 Pulse Oximetry 100 Oxygen Delivery 08/09/25 12:00 Temperature Pulse Rate Respiratory Rate Blood Pressure Pulse Oximetry Oxygen Delivery Room Air Exam Narrative: On examination today he is awake alert oriented x3, his speech not dysphasic not dysarthric not dysphonic, head normocephalic with no cranial bruits, ear nose throat examination normal, neck supple with no bruit, heart regular with no murmur, lungs clear to auscultation, abdomen is soft nontender with normal bowel sounds, neurologically he is awake alert oriented x3, speech not dysphasic not dysarthric not dysphonic, pupils round regular react to light equally, feels the vision full in all 4 quadrants, extraocular movements are full with no nystagmus, facial sensation intact, face symmetrical, midline, motor examination revealed normal strength and tone in upper and lower extremities with symmetrical reflexes downgoing plantar responses no evidence of gross cerebellar deficit. Results Labs 08/09/25 04:23 08/09/25 04:23 Labs: Short CBC 08/09/25 Range/Units 04:23 WBC 15.6 H (4.5-10.0) K/mm3 Hgb 15.8 (14.0-18.0) g/dL Hct 45.0 (42.0-52.0) % Plt Count 235 (150-375) k/mm3 [facility] 08/09/25 04:23 Sodium 136 L Potassium 3.6 Chloride 103 Carbon Dioxide 27 BUN 20 Creatinine 0.98 Glucose 109 Calcium 9.1 Liver Function 08/09/25 Range/Units 04:23 Total Bilirubin 2.6 H (0.2-1.3) mg/dL AST 202 H (17-59) U/L ALT 62 H (6-50) U/L Alkaline Phosphatase 85 (38-126) U/L Albumin 3.9 (3.5-5.1) g/dL
[2025-08-11 12:08] LABS: Renin Activity, Plasma 7.583 ng/mL/hr (0.167-5.380)
[2025-08-12 02:07] LABS: Renin Activity, Plasma 7.676 ng/mL/hr (0.167-5.380)
== END 2025-08-09 17:34 | disposition home or self-care (01) | DRG 174 ==
LOC: ANHED 20:28 → ANHICU 22:31 → ANHIMU 08-07 15:31
PROVIDERS: Internal Medicine; Internal Medicine Interventional Cardiology; Admitting Provider Internal Medicine; Emergency Provider Student in an Organized Health Care Education/Training Program; Visit Provider Internal Medicine
PROC: 4A023N7 Measurement of Cardiac Sampling and Pressure, Left Heart, Percutaneous Approach (ICD-10-PCS; CPT 93452; principal; 2025-08-08 11:00)
PROC: 027034Z Dilation of Coronary Artery, One Artery with Drug-eluting Intraluminal Device, Percutaneous Approach (ICD-10-PCS; CPT 92928; 2025-08-08 11:00)
PROC: 027034Z Dilation of Coronary Artery, One Artery with Drug-eluting Intraluminal Device, Percutaneous Approach (ICD-10-PCS; 2025-08-08 11:00)
DX: I21.4 Non-ST elevation (NSTEMI) myocardial infarction (principal); I16.1 Hypertensive emergency; Q60.0 Renal agenesis, unilateral; F14.90 Cocaine use, unspecified, uncomplicated; F12.10 Cannabis abuse, uncomplicated; Z91.148 Patient's other noncompliance with medication regimen for other reason
CPT/HCPCS: 36415; 70450; 70553; 71045; 71275; 74174; 80053; 80061; 80074; 80307; 82088; 82533; 83690; 83735; 83835; 84244; 84443; 84484; 85025; 85027; 85610; 85730; 87641; 92978; 93005; 93458; 94762; 96374; 96375; 99285; A9270; A9577; C1725; C1753; C1769; C1874; C1887; C1894; C8929; C9600; G0378; G0379; J0780; J1644; J2003; J2250; J2305; J2404; J3010; J7030; J7040; Q9957; Q9967